=== PATIENT | male | born 1960 | race Caucasian/White ===

== ENCOUNTER 2021-05-21 13:24 | Inpatient (IN) | payer OTHER ==
[~2021-05-21] VITALS: Ht 175.3 cm; Wt 72.6 kg
--- NOTE | 2021-05-21 13:56 | PHYS DOC ---
Past Medical History Past Medical History: No Pertinent History Past Surgical History: No Surgical History Smoking Status: Never Smoker Alcohol Use: None Drug Use: None General Adult EDM: Chief Complaint: SHORTNESS OF BREATH Problems: (1) Shortness of breath HPI: HPI: 61-year-old male presents to the emergency department complaining of shortness of breath, mental fogginess, cough, fever, chills. He was seen by his primary care physician in [place] earlier today and was found to be hypoxic on room air 86%. He was also noted to have marked confusion, trouble with walking without assistance. He denies any focal weakness, numbness, but does report that he has been much more confused and mentally "foggy "over the past 10 days that has been progressing. He denies any acute change today with the symptoms today. He admits that he was infected with Covid approximately 3 weeks ago and has not had any resolution of symptoms. He admits to progressive cough, shortness of breath that is worsening. Review of Systems: Review of Systems: Constitutional: Admits to fever and chills. Eyes: Denies change in vision, pain. HENT: Admits to congestion and sore throat. Respiratory: Admits to cough and shortness of breath. Cardiovascular: Denies chest pain or edema. GI: Denies abdominal pain, nausea. : Denies change in urination, dysuria. Musculoskeletal: Denies extremity pain, swelling, or trauma. Skin: Denies rash, skin change. Neurologic: Admits to confusion, denies focal weakness or numbness. Psychiatric: Denies depression or anxiety. All other systems reviewed as negative except for what was mentioned in the HPI. Heart Score: C/O Chest Pain: No Family History: Family History: Noncontributory Current Medications: My Orders - DAVID CASIANO DO Procedure Category Date Status Time Vital Signs Monitoring ER 05/21/21 Transmitted 13:47 Blood Pressure ER 05/21/21 Transmitted Monitoring 13:47 Cbc W [employer]od[employer] LAB 05/21/21 In Process 13:47 Comprehensive LAB 05/21/21 Complete Metabolic Panel 13:47 Portable Chest 1v RAD 05/21/21 Resulted 13:47 12 Lead Ekg EKG 05/21/21 Complete 13:47 Nt-Pro Bnp LAB 05/21/21 Complete 13:47 Troponini LAB 05/21/21 Complete 13:47 Pulse Oximetry: [facility] 05/21/21 In Process Standing Order 13:47 Ct Head Wo Contrast CT 05/21/21 Resulted 13:47 Manual Differential LAB 05/21/21 In Process 14:00 Er Bridge Order ADT 05/21/21 Transmitted 14:38 Code Status CODE 05/21/21 Transmitted 14:38 Vital Signs, Per Unit [facility] 05/21/21 In Process Protocol 14:38 Regular DIET 05/21/21 Transmitted Dinner Ambulate With [facility] 05/21/21 In Process Assistance 14:38 Consult Physician By CONS 05/21/21 Transmitted Name 14:38 Foreign Banknote Teller [facility] 05/21/21 In Process 14:38 Vital Signs Q4h [facility] 05/21/21 In Process 14:38 Allergies: Allergies: Allergies Coded Allergies Type Severity Reaction Last Updated Verified No Known Drug Allergies 05/21/21 No Physical Exam: PE: Constitutional: No acute distress, non-toxic appearance. HENT: Atraumatic, bilateral external ears normal, nose normal. Eyes: PERRLA, EOMI, conjunctiva normal, no discharge. Neck: Normal range of motion, supple, no stridor. Cardiovascular: Heart rate regular rhythm. 2+ radial pulses Lungs & Thorax: No respiratory distress, symmetrical expansion. Bilateral breath sounds clear to auscultation Abdomen: Soft, no tenderness Skin: Warm, dry. Extremities: No tenderness, no cyanosis, ROM intact, no edema. Neurologic: Alert and oriented X 3, patient appears confused, laborious speech but clear and fluent, takes a long time to answer simple questions normal motor function, normal sensory function, no focal deficits noted. Patient appears off balance when he walks, cannot walk unassisted. GCS 15. Psychologic: Affect normal, judgment normal, mood normal. Current Patient Data: Labs: Laboratory Tests Test 05/21/21 14:00 White Blood Count 6.0 x10^3/uL (4.0-11.0) Red Blood Count 4.40 x10^6/uL (4.30-5.70) Hemoglobin 13.6 g/dL (13.0-17.5) Hematocrit 39.0 % (39.0-53.0) Mean Corpuscular Volume 89 fL (79-100) Mean Corpuscular Hemoglobin 31 pg (25-35) Mean Corpuscular Hemoglobin Concent 35 g/dL (31-37) Red Cell Distribution Width 13.9 % (11.5-14.5) Platelet Count 298 x10^3/uL (140-400) Neutrophils (%) (Auto) 87 % (31-73) Lymphocytes (%) (Auto) 8 % (24-48) Monocytes (%) (Auto) 5 % (0-9) Eosinophils (%) (Auto) 0 % (0-3) Basophils (%) (Auto) 0 % (0-3) Neutrophils # (Auto) 5.2 x10^3/uL (1.8-7.7) Lymphocytes # (Auto) 0.5 x10^3/uL (1.0-4.8) Monocytes # (Auto) 0.3 x10^3/uL (0.0-1.1) Eosinophils # (Auto) 0.0 x10^3/uL (0.0-0.7) Basophils # (Auto) 0.0 x10^3/uL (0.0-0.2) Sodium Level 124 mmol/L (136-145) Potassium Level 4.0 mmol/L (3.5-5.1) Chloride Level 88 mmol/L (98-107) Carbon Dioxide Level 28 mmol/L (21-32) Anion Gap 8 (6-14) Blood Urea Nitrogen 24 mg/dL (8-26) Creatinine 1.3 mg/dL (0.7-1.3) Estimated GFR (Cockcroft-Gault) 55.8 BUN/Creatinine Ratio 18 (6-20) Glucose Level 119 mg/dL (70-99) Calcium Level 8.5 mg/dL (8.5-10.1) Total Bilirubin 1.3 mg/dL (0.2-1.0) Aspartate Amino Transf (AST/SGOT) 63 U/L (15-37) Alanine Aminotransferase (ALT/SGPT) 154 U/L (16-63) Alkaline Phosphatase 158 U/L (46-116) Troponin I Quantitative < 0.017 ng/mL (0.000-0.055) ZV-Jkq-M-Type Natriuretic Peptide 240 pg/mL (0-124) Total Protein 6.6 g/dL (6.4-8.2) Albumin 2.4 g/dL (3.4-5.0) Albumin/Globulin Ratio 0.6 (1.0-1.7) Vital Signs: Vital Signs Date Time Temp Pulse Resp B/P (MAP) Pulse Ox O2 Delivery O2 Flow Rate FiO2 05/21/21 13:30 98.4 72 18 103/65 94 Nasal Cannula 4.0 98.4 EKG: EKG: Normal sinus rhythm rate of 68, no ST-T wave changes, no ectopic beats, left axis deviation, normal MD, QRS, and QTc intervals. Impression: Left axis deviation interpreted by meDavid D.O. Radiology/Procedures: Radiology/Procedures: CT HEAD/BRAIN WO History: Confusion. Comparison: None. Technique: Noncontrast CT imaging was performed of the head. Findings: No intracranial hemorrhage. No mass effect. No hydrocephalus. No evidence of territorial infarction. Imaged orbits are unremarkable. Imaged paranasal sinuses and mastoid air cells are clear. The scalp and calvarium are unremarkable. Impression: 1. No acute intracranial abnormality. ----- Exposure: One or more of the following individualized dose reduction techniques were utilized for this examination: 1. Automated exposure control 2. Adjustment of the mA and/or kV according to patient size 3. Use of iterative reconstruction technique. Electronically signed by: Torito Guy MD (05/21/2021 2:18 PM) XR CHEST 1V History: Short of air. Comparison: None. Technique: Portable AP radiograph of the chest. Findings: Diffuse bilateral airspace consolidations. No pleural effusion or pneumothorax. Adequate inflation. Cardiac mediastinal silhouette and pulmonary vasculature are within normal limits. Osseous structures and soft tissues are unremarkable. Impression: 1. Diffuse bilateral airspace consolidations, most likely multifocal pneumonia such as Covid viral pneumonia. Electronically signed by: Torito Guy MD (05/21/2021 2:19 PM) Course & Med Decision Making: Course & Med Decision Making Patient with COVID-19 pneumonia with diffuse opacities and infiltrates on his plain film of the chest. He also had marked confusion, states onset was about 10 days ago, while outside the window for TPA, does not have anything focal on his neuro exam today. Subacute/chronic CVA is certainly on the differential. Patient will require further work-up regarding this. He does have a new supplemental oxygen requirement of 4 L at this time as he was hypoxic on room air. He will be admitted to the hospital under Dr. Riffel Departure Departure Impression: Primary Impression: Pneumonia due to COVID-19 virus Additional Impression: Confusion with non-focal neuro exam Disposition: ADMITTED INPATIENT (Riffel) Condition: STABLE Referrals: BONNIE REDDY (PCP) DAVID CASIANO DO May 21, 2021 13:56
[2021-05-21 14:07] LABS: BASO % 0 % (0-3); EOS % 0 % (0-3); HEMOGLOBIN 13.6 g/dL (13.0-17.5); LYMPH # 0.5 x10^3/uL (1.0-4.8); LYMPH % 8 % (24-48); MEAN CORPUSCULAR HEMOGLOBIN 31 pg (25-35); MEAN CORPUSCULAR HGB CONC 35 g/dL (31-37); MEAN CORPUSCULAR VOLUME 89 fL (79-100); MONO # 0.3 x10^3/uL (0.0-1.1); MONO % 5 % (0-9); NEUT # 5.2 x10^3/uL (1.8-7.7); NEUT % 87 % (31-73); PLATELET COUNT 298 x10^3/uL (140-400); RED CELL DISTRIBUTION WIDTH 13.9 % (11.5-14.5)
[2021-05-21 14:15] LABS: CALCIUM 8.5 mg/dL (8.5-10.1); CREATININE 1.3 mg/dL (0.7-1.3); GFR 55.8
--- NOTE | 2021-05-21 14:18 | EKG ---
[facility] [address] [place] [address] Test Date: 2021-05-21 Test Time: 13:57:34 Pat Name: RENY CALLES Department: Room: Gender: M Polisher Dial: : 1960 Requested By: SHENA CASIANO Order Number: [id number] Reading MD: Measurements Intervals [place] Rate: 68 P: 61 CO: 144 QRS: -10 QRSD: 96 T: 30 QT: 410 QTc: 441 Interpretive Statements SINUS RHYTHM LEFTWARD AXIS OTHERWISE NORMAL ECG RI6.02 No previous ECG available for comparison
--- NOTE | 2021-05-21 14:20 | RAD ---
CT HEAD/BRAIN WO History: Confusion. Comparison: None. Technique: Noncontrast CT imaging was performed of the head. Findings: No intracranial hemorrhage. No mass effect. No hydrocephalus. No evidence of territorial infarction. Imaged orbits are unremarkable. Imaged paranasal sinuses and mastoid air cells are clear. The scalp a nd calvarium are unremarkable. Impression: 1. No acute intracranial abnormality. ----- Exposure: One or more of the following individualized dose reduction techniques were utilized for thi s examination: 1. Automated exposure control 2. Adjustment of the mA and/or kV according to patient size 3. Use of iterative reconstruction technique. Electronically signed by: Torito Guy MD (05/21/2021 2:18 PM) [id number]
[2021-05-21 14:21] LABS: ALBUMIN 2.4 g/dL (3.4-5.0); ALBUMIN/GLOBULIN RATIO 0.6 (1.0-1.7); TOTAL BILIRUBIN 1.3 mg/dL (0.2-1.0); TOTAL PROTEIN 6.6 g/dL (6.4-8.2)
--- NOTE | 2021-05-21 14:22 | RAD ---
XR CHEST 1V History: Short of air. Comparison: None. Technique: Portable AP radiograph of the chest. Findings: Diffuse bilateral airspace consolidations. No pleural effusion or pneumothorax. Adequate inflation. C ardiac mediastinal silhouette and pulmonary vasculature are within normal limits. Osseous structures and soft tissues are unremarkable. Impression: 1. Diffuse bilateral airspace consolidations, most likely multifocal pneumonia such as Covid viral p neumonia. Electronically signed by: Torito Guy MD (05/21/2021 2:19 PM) [id number]
--- NOTE | 2021-05-21 15:02 | PDOC1 ---
History and Physical Date of Admission Date of Admission DATE: 05/21/21 TIME: 15:01 Identification/Chief Complaint Chief Complaint Shortness of breath Source Source: Patient History of Present Illness History of Present Illness Mr Brown is a 61-year-old male (22 year retired [employer] ) who presents to the emergency department complaining of shortness of breath, mental fogginess, word finding difficulty, cough, fever, chills. His PCP in [place] earlier today and was found to be hypoxic on room air 86%. He was also noted to have marked confusion, trouble with walking without assistance, no focal deficits, just muscular fatigue. He has been more confused and had mental fogginess for the past 10 days. He believes was infected with Covid approximately 3 weeks ago and was tested positive at [facility] and has not had any resolution of symptoms. In fact he admits to progressive cough, shortness of breath that is worsening. He also notes anosmia loss of appetite. He has had trouble taking care of himself. In the ED he required 4 L nasal cannula oxygen to maintain O2 saturations 89% greater. On interview he was slow to find words but this improved as his oxygen saturations improved. He does note he wanted to get COVID-19 vaccine but was convinced to delay this as his did not think it was necessary. Labs with WBC 6, Hb 13.6, platelets 298, NA 124, K4, BUN 24, CR 1.3, glucose 119 calcium 8.5, bilirubin 1.3, AST 63, ALT 154, alkaline phosphatase 158, albumin 2.4, troponin 0, NT proBNP [address] head with no acute abnormalities Chest radiograph with diffuse bilateral airspace consolidations Admitted for further care. Past Medical History Cardiovascular: No pertinent hx Past Surgical History Past Surgical History: No pertinent history Family History Family History: Hypertension Social History Smoke: Quit (Continues to use smokeless tobacco) ALCOHOL: none Drugs: None Current Problem List Problem List Problems Medical Problems: (1) Confusion with non-focal neuro exam Status: Acute (2) Pneumonia due to COVID-19 virus Status: Acute Allergies Allergies: Coded Allergies: No Known Drug Allergies (Unverified , 05/21/21) ROS General: YES: Chills, Night Sweats, Fatigue, Malaise, Appetite; No: Other PSYCHOLOGICAL ROS: YES: Concentration difficultie, Memory difficulties; No: Anxiety, Behavioral Disorder, Decreased libido, Depression, Disorientation, Hallucinations, Hostility, Irritablity, Mood Swings, Obsessive thoughts, Physical abuse, Sexual abuse, Sleep disturbances, Suicidal ideation, Other Eyes: No Blurry vision, No Decreased vision, No Double vision, No Dry eyes, No Excessive tearing, No Eye Pain, No Itchy Eyes, No Loss of vision, No Phot ophobia, No Scotomata, No Uses contacts, No Uses glasses, No Other HEENT: YES: Nasal congestion, Nasal discharge, Sinus pain, Sneezing; No: Heacaches, Visual Changes, Hearing change, Oral lesions, Sore Throat, Epistaxis, Snoring, Tinnitus, Vertigo, Vocal changes, Other ALLERGY AND IMMUNOLOGY: No: Hives, Insect Bite Sensitivity, Itchy/Watery Eyes, Nasal Congestion, Post Nasal Drip, Seasonal Allergies, Other Hematological and Lymphatic: No: Bleeding Problems, Blood Clots, Blood Transfu sions, Brusing, Night Sweats, Pallor, Swollen Lymph Nodes, Other ENDOCRINE: No: Breast Changes, Galactorrhea, Hair Pattern Changes, Hot Flashes, Malaise/lethargy, Mood Swings, Palpitations, Polydipsia/polyuria, Skin Changes, Temperature Intolerance, Unexpected Weight Changes, Other Breast: No New/Changing Breast Lumps, No Nipple changes, No Nipple discharge, No Other Respiratory: YES: Cough, Shortness of breath, SOB with excertion, Tachypnea, Wheezing; No: Hemoptysis, Orthopnea, Pleuritic Pain, Sputum Changes, Stridor, Other Cardiovascular: No Chest Pain, No Palpitations, No Orthopnea, No Paroxysmal Noc. Dyspnea, No Edema, No Lt Headedness, No Other Gastrointestinal: Yes Nausea; No Vomiting, No Abdominal Pain, No Diarrhea, No Constipation, No Melena, No Hematochezia, No Other Genitourinary: No Dysuria, No Frequency, No Incontinence, No Hematuria, No Retention, No Discharge, No Urgency, No Pain, No Flank Pain, No Other, No , No , No , No , No , No , No Musculoskeletal: No Gait Disturbance, No Joint Pain, No Joint Stiffness, No Joint Swelling, No Muscle Pain, No Muscular Weakness, No Pain In:, No Swelling In:, No Other Neurological: No Behavorial Changes, No Bowel/Bladder ControlChng, No Confusion, No Dizziness, No Gait Disturbance, No Headaches, No Impaired Coord/balance, No Memory Loss, No Numbness/Tingling, No Seizures, No Speech Prob lems, No Tremors, No Visual Changes, No Weakness, No Other Skin: No Dry Skin, No Eczema, No Hair Changes, No Lumps, No Mole Changes, No Mottling, No Nail Changes, No Pruritus, No Rash, No Skin Lesion Changes, No Other, No Acne Physical Exam General: Alert, Oriented X3, Cooperative, moderate distress HEENT: Atraumatic, PERRLA, EOMI, Mucous membr. moist/pink Lungs: Other (Bilateral coarse rhonchi) Heart: S1S2, RRR, no thrills, no rubs, no gallops, no murmurs Abdomen: Normal bowel sounds, Soft, No tenderness, No hepatosplenomegaly, No masses Rectal Exam: not examined Extremities: No clubbing, No cyanosis, No edema, Normal pulses, No tenderness/swelling Skin: No rashes, No breakdown, No significant lesion Neuro: Normal gait, Normal speech, Strength at 5/5 X4 ext, Normal tone, Sensation intact, Cranial nerves 3-12 NL, Reflexes 2+ Psych/Mental Status: Mental status NL, Mood NL Vitals Vitals Vital Signs Date Time Temp Pulse Resp B/P (MAP) Pulse Ox O2 Delivery O2 Flow Rate FiO2 05/21/21 14:27 69 24 115/71 (86) 96 Nasal Cannula 3.0 05/21/21 13:30 98.4 98.4 Labs Labs Laboratory Tests Test 05/21/21 14:00 White Blood Count 6.0 x10^3/uL (4.0-11.0) Red Blood Count 4.40 x10^6/uL (4.30-5.70) Hemoglobin 13.6 g/dL (13.0-17.5) Hematocrit 39.0 % (39.0-53.0) Mean Corpuscular Volume 89 fL (79-100) Mean Corpuscular Hemoglobin 31 pg (25-35) Mean Corpuscular Hemoglobin Concent 35 g/dL (31-37) Red Cell Distribution Width 13.9 % (11.5-14.5) Platelet Count 298 x10^3/uL (140-400) Neutrophils (%) (Auto) 87 % (31-73) Lymphocytes (%) (Auto) 8 % (24-48) Monocytes (%) (Auto) 5 % (0-9) Eosinophils (%) (Auto) 0 % (0-3) Basophils (%) (Auto) 0 % (0-3) Neutrophils # (Auto) 5.2 x10^3/uL (1.8-7.7) Lymphocytes # (Auto) 0.5 x10^3/uL (1.0-4.8) Monocytes # (Auto) 0.3 x10^3/uL (0.0-1.1) Eosinophils # (Auto) 0.0 x10^3/uL (0.0-0.7) Basophils # (Auto) 0.0 x10^3/uL (0.0-0.2) Sodium Level 124 mmol/L (136-145) Potassium Level 4.0 mmol/L (3.5-5.1) Chloride Level 88 mmol/L (98-107) Carbon Dioxide Level 28 mmol/L (21-32) Anion Gap 8 (6-14) Blood Urea Nitrogen 24 mg/dL (8-26) Creatinine 1.3 mg/dL (0.7-1.3) Estimated GFR (Cockcroft-Gault) 55.8 BUN/Creatinine Ratio 18 (6-20) Glucose Level 119 mg/dL (70-99) Calcium Level 8.5 mg/dL (8.5-10.1) Total Bilirubin 1.3 mg/dL (0.2-1.0) Aspartate Amino Transf (AST/SGOT) 63 U/L (15-37) Alanine Aminotransferase (ALT/SGPT) 154 U/L (16-63) Alkaline Phosphatase 158 U/L (46-116) Troponin I Quantitative < 0.017 ng/mL (0.000-0.055) DG-Nqr-C-Type Natriuretic Peptide 240 pg/mL (0-124) Total Protein 6.6 g/dL (6.4-8.2) Albumin 2.4 g/dL (3.4-5.0) Albumin/Globulin Ratio 0.6 (1.0-1.7) Laboratory Tests Test 05/21/21 14:00 White Blood Count 6.0 x10^3/uL (4.0-11.0) Red Blood Count 4.40 x10^6/uL (4.30-5.70) Hemoglobin 13.6 g/dL (13.0-17.5) Hematocrit 39.0 % (39.0-53.0) Mean Corpuscular Volume 89 fL (79-100) Mean Corpuscular Hemoglobin 31 pg (25-35) Mean Corpuscular Hemoglobin Concent 35 g/dL (31-37) Red Cell Distribution Width 13.9 % (11.5-14.5) Platelet Count 298 x10^3/uL (140-400) Neutrophils (%) (Auto) 87 % (31-73) Lymphocytes (%) (Auto) 8 % (24-48) Monocytes (%) (Auto) 5 % (0-9) Eosinophils (%) (Auto) 0 % (0-3) Basophils (%) (Auto) 0 % (0-3) Neutrophils # (Auto) 5.2 x10^3/uL (1.8-7.7) Lymphocytes # (Auto) 0.5 x10^3/uL (1.0-4.8) Monocytes # (Auto) 0.3 x10^3/uL (0.0-1.1) Eosinophils # (Auto) 0.0 x10^3/uL (0.0-0.7) Basophils # (Auto) 0.0 x10^3/uL (0.0-0.2) Sodium Level 124 mmol/L (136-145) Potassium Level 4.0 mmol/L (3.5-5.1) Chloride Level 88 mmol/L (98-107) Carbon Dioxide Level 28 mmol/L (21-32) Anion Gap 8 (6-14) Blood Urea Nitrogen 24 mg/dL (8-26) Creatinine 1.3 mg/dL (0.7-1.3) Estimated GFR (Cockcroft-Gault) 55.8 BUN/Creatinine Ratio 18 (6-20) Glucose Level 119 mg/dL (70-99) Calcium Level 8.5 mg/dL (8.5-10.1) Total Bilirubin 1.3 mg/dL (0.2-1.0) Aspartate Amino Transf (AST/SGOT) 63 U/L (15-37) Alanine Aminotransferase (ALT/SGPT) 154 U/L (16-63) Alkaline Phosphatase 158 U/L (46-116) Troponin I Quantitative < 0.017 ng/mL (0.000-0.055) EI-Bso-M-Type Natriuretic Peptide 240 pg/mL (0-124) Total Protein 6.6 g/dL (6.4-8.2) Albumin 2.4 g/dL (3.4-5.0) Albumin/Globulin Ratio 0.6 (1.0-1.7) Images Images Chest radiograph: Diffuse bilateral airspace consolidations. No pleural effusion or pneumothorax. Adequate inflation. Cardiac mediastinal silhouette and pulmonary vasculature are within normal limits. Osseous structures and soft tissues are unremarkable. Impression: 1. Diffuse bilateral airspace consolidations, most likely multifocal pneumonia such as Covid viral pneumonia. Noncontrast CT head: No intracranial hemorrhage. No mass effect. No hydrocephalus. No evidence of territorial infarction. Imaged orbits are unremarkable. Imaged paranasal sinuses and mastoid air cells are clear. The scalp and calvarium are unremarkable. Impression: 1. No acute intracranial abnormality. VTE Prophylaxis Ordered VTE Prophylaxis Devices: No VTE Pharmacological Prophylaxi: Yes Assessment/Plan Assessment/Plan A/P: Acute respiratory failure with hypoxia -likely COVID-19 related ARDS complicated by an acquired pneumonia. Will initiate Decadron and remdesivir. COVID 19 - with ARDS/pneumonia. Above treatment and supportive care wean O2 as tolerated. Community acquired pneumonia - bilateral atypical appearance likely gram nega tive secondary bacterial pneumonia complicating COVID 19. Will cover empirically, f/u urine legionella Acute Encephalopathy - likely hypoxic encephalopathy or related to hyponatremia. No immediate concerns for CVA, this is better explained by metabolic phenomena Hyponatremia - likely nutritional, has been taking PO poorly. Will check urine legionella as well Transaminitis - likely COVID 19 related as well as nutritional. Will trend Severe protein calorie malnutrition - related to above. Will add supplements as needed DEDRICK - likely vasomotor nephropathy. No renal disease history Smokeless tobacco use - counseled on cessation. offered nicotine replacement therapy FEN - regular diet PPX lovenox FULL CODE Dispo - inpatient for above Justifications for Admission Other Justification HADLEY GATES MD May 21, 2021 15:02
[2021-05-21 15:21] LABS: % ATYL 1 % (0-0); % BANDS 5 % (0-9); % EOS 1 % (0-5); % LYMPHS 6 % (24-48); % SEGS 87 % (35-66); PLT ESTIMATE ADEQUATE (ADEQUATE)
[2021-05-21 15:38] LABS: TOXIC GRANULATION SLIGHT
[2021-05-21] MEDS ORDERED: ACETAMINOPHEN 325 MG TABLET. PO PRN (15:45)
[2021-05-21] MEDS ORDERED: ONDANSETRON PF 4 MG/2 ML VIAL. IVP PRN (15:45)
[2021-05-21] MEDS ORDERED: guaiFENesin DM 200MG/20MG 10 ML SYRUP PO PRN (15:45)
[2021-05-21] MEDS ORDERED: traMADol 50 MG TABLET PO PRN (15:45)
[2021-05-21] MEDS: cefTRIAXone IV Push 1 GM VIAL. IVP SCH (16:38)
[2021-05-21] MEDS: DEXAMETHASONE SOD PHOS 4 MG/ML VIAL IVP SCH (16:42)
[2021-05-21] MEDS ORDERED: IV NORMAL SALINE 1000ML BAG 1,000 ML IV ONE (17:00)
[2021-05-21 17:39] LABS: BASE EXCESS ABG 3 mmol/L (-3-3); HCO3 ABG 26 mmol/L (21-28); PCO2 ABG 32 mmHg (35-46); PO2 ABG 60 mmHg (65-108); SAT O2 ABG 92 % (92-99)
[2021-05-21 17:40] LABS: FIO2 ABG 36% 4L NC
[2021-05-21] MEDS ORDERED: REMDESIVIR LOAD in IV NORMAL SALINE 250ML TV IV ONE (18:00)
[2021-05-21 18:37] VITALS: BP 110/66
--- NOTE | 2021-05-21 18:38 | NUR ---
Pt arrived on unit at 1820 by bed via ED staff. POC/orders reviewed. Pt in bed on 5L NC, O2 sats 90%. Pt instructed to breath in through nose and out through mouth. Pt denies pain on admission, slow to respond. Fresh ice water given. Will assume care of pt.
[2021-05-21] MEDS ORDERED: ZOLPIDEM 5 MG TABLET. PO PRN (21:00)
[2021-05-21] MEDS: DOXYCYCLINE HYCLATE 100 MG in IV DEXTROSE 5% 100ML 100 ML IV SCH (21:25)
[2021-05-21] MEDS: PSYLLIUM HUSK (SUGAR FREE) 1 PKT PACKET PO SCH (21:26)
[2021-05-21] MEDS: ENOXAPARIN 40 MG/0.4 ML SYRINGE. SQ SCH (21:26)
[2021-05-21 23:00] VITALS: BP 101/63
[2021-05-22 03:00] VITALS: BP 120/73
[2021-05-22 04:32] LABS: BILIRUBIN,URINE NEGATIVE (NEG); CLARITY,URINE CLEAR; COLOR,URINE AMBER; NITRITE,URINE NEGATIVE (NEG); PH,URINE 5.5 (<5.0-8.0); PROTEIN,URINE 30 mg/dL (NEG-TRACE)
[2021-05-22 05:35] LABS: AMORPHOUS SEDIMENT,UR PRESENT /HPF; BACTERIA,URINE FEW /HPF (0-FEW)
[2021-05-22 07:00] VITALS: BP 93/66
[2021-05-22 07:22] LABS: BASO % 0 % (0-3); EOS % 0 % (0-3); HEMOGLOBIN 12.9 g/dL (13.0-17.5); LYMPH # 0.3 x10^3/uL (1.0-4.8); LYMPH % 8 % (24-48); MEAN CORPUSCULAR HEMOGLOBIN 31 pg (25-35); MEAN CORPUSCULAR HGB CONC 35 g/dL (31-37); MEAN CORPUSCULAR VOLUME 88 fL (79-100); MONO # 0.3 x10^3/uL (0.0-1.1); MONO % 7 % (0-9); NEUT # 3.5 x10^3/uL (1.8-7.7); NEUT % 85 % (31-73); PLATELET COUNT 308 x10^3/uL (140-400); RED BLOOD COUNT 4.18 x10^6/uL (4.30-5.70); RED CELL DISTRIBUTION WIDTH 13.9 % (11.5-14.5); WHITE BLOOD COUNT 4.1 x10^3/uL (4.0-11.0)
[2021-05-22 07:46] LABS: ALBUMIN/GLOBULIN RATIO 0.5 (1.0-1.7); CALCIUM 8.3 mg/dL (8.5-10.1); CREATININE 0.9 mg/dL (0.7-1.3); GFR 85.2; POTASSIUM 4.4 mmol/L (3.5-5.1); TOTAL BILIRUBIN 0.6 mg/dL (0.2-1.0)
[2021-05-22] MEDS: DEXAMETHASONE SOD PHOS 4 MG/ML VIAL IVP SCH (08:37)
[2021-05-22] MEDS: ZINC SULFATE 220 MG CAPSULE. PO SCH (08:38)
[2021-05-22] MEDS: THIAMINE 100 MG TABLET. PO SCH (08:38)
[2021-05-22] MEDS: DOXYCYCLINE HYCLATE 100 MG in IV DEXTROSE 5% 100ML 100 ML IV SCH ×2 (08:38→21:06)
--- NOTE | 2021-05-22 09:50 | PDOC2 ---
NEUROLOGY CONSULT Date of Service DOS: DATE: 05/22/21 TIME: 09:45 Reason for Consult Reason for Consult: Confusion, possible stroke Referring Physician Referring Physician: Dr. Garcia Source Source: Chart review, Patient History of Present Illness History of Present Illness The patient is a 61-year-old right-handed male who presented to the emergency department with dyspnea, mental fogginess, cough, fevers, and chills. He thinks he was infected with Covid 3 weeks ago by some coworkers. He is Covid positive. At his primary care physician yesterday, he was had 86% saturation on room air. He is feeling much better today. He denies any history of stroke, seizure, or head injury. He has also been found to have hyponatremia, slight hyperbilirubinemia, slightly elevated transaminases. Past Medical History Musculoskeletal: Other (Left tibia fracture) Past Surgical History Past Surgical History: No pertinent history Family History Family History: No pertinent hx (Mother at age 97) Social History Social History , occasional smokeless tobacco, rare alcohol, no street drugs, , still works as a associate financial representative Current Medications Current Medications Current Medications Dexamethasone Sodium Phosphate (Decadron) 6 mg DAILY IVP Last administered on 05/22/21at 08:37; Start 05/21/21 at 15:45 Acetaminophen (Tylenol) 650 mg PRN Q6HRS PRN PO MILD PAIN / TEMP > 100.3'F; Start 05/21/21 at 15:45 Ondansetron HCl (Zofran) 4 mg PRN Q4HRS PRN IVP NAUSEA/VOMITING; Start 05/21/21 at 15:45 Tramadol HCl (Ultram) 50 mg PRN Q6HRS PRN PO MODERATE-SEVERE PAIN; Start 05/21/21 at 15:45 Guaifenesin (Robitussin Dm) 10 ml PRN Q6HRS PRN PO COUGH; Start 05/21/21 at 15:4 5 Enoxaparin Sodium (Lovenox 40mg Syringe) 40 mg Q24H SQ Last administered on 05/21/21at 21:26; Start 05/21/21 at 21:00 Ceftriaxone Sodium (Rocephin) 1 gm Q24H IVP Last administered on 05/21/21at 16:38; Start 05/21/21 at 17:00 Doxycycline Hyclate 100 mg/ Dextrose 100 ml @ 50 mls/hr Q12HR IV Last administered on 05/22/21at 08:38; Start 05/21/21 at 21:00 Zinc Sulfate (Orazinc) 220 mg DAILY PO Last administered on 05/22/21at 08:38; Start 05/22/21 at 09:00 Zolpidem Tartrate (Ambien) 5 mg PRN QHS PRN PO INSOMNIA; Start 05/21/21 at 21:00 Psyllium Hydrophilic Mucilloid (Metamucil Fiber Packet) 1 pkt QHS PO Last administered on 05/21/21at 21:26; Start 05/21/21 at 21:00 Thiamine Mononitrate (Vitamin B-1) 100 mg DAILY PO Last administered on 05/22/21at 08:38; Start 05/22/21 at 09:00 Remdesivir 200 mg/ Sodium Chloride 210 ml @ 210 mls/hr 1X ONCE IV Last administered on 05/21/21at 18:26; Start 05/21/21 at 18:00; Stop 05/21/21 at 18:59; Status DC Remdesivir 100 mg/ Sodium Chloride 230 ml @ 460 mls/hr Q24H IV ; Start 05/22/21 at 18:00; Stop 05/25/21 at 18:29 Sodium Chloride 1,000 ml @ 75 mls/hr 1X ONCE IV Last administered on 05/21/21at 18:26; Start 05/21/21 at 17:00; Stop 05/22/21 at 06:19; Status DC Active Scripts Active Reported [none] Allergies Allergies: Coded Allergies: No Known Drug Allergies (Unverified , 05/21/21) ROS Review of System Negative for fever, chills, weight loss, shortness of breath, chest pain, indigestion, hematochezia, melena, and dysuria. Full 14-point review of systems is negative. Physical Exam Physical Examination General: Well-developed, well-nourished white male in no acute distress HEENT: Normocephalic andatraumatic. Tympanic membranes clear.Temporal arteriespulsatile and nontender.Fundoscopic exam unremarkable Neck: Supple without bruit, no meningismus Musculoskeletal: Stability:see neurologic. Gait exam:see neurologic. Tone:see neurologic.Strength:see neurologic. Neurological: Mental Status:intact, orientation, memory, attention span/concentration, language, fund of knowledge normal. Cranial Nerves:Pupils equal and reactive to light, extraocular movements areintact, visual corona are full to confrontati on. Facial sensation is normal. There is no facial asymmetry. Vestibulo-ocular reflex is intact. Palate elevates and tongue protrudes in midline. All other cranial related problems are negative except as mentioned before.Reflexes:2+ and symmetric with flexor plantar responses. Motor:5/5 strength with normal tone and bulk. Coordination:Finger-nose finger and ruca-uv-[id number] testing are normal. Rapid alternating movements and fine finger movements are intact. Gait:Normal, including tandem. Sensory:Normal pinprick, vibration, light touch, proprioception. Vitals VITALS Vital Signs Date Time Temp Pulse Resp B/P (MAP) Pulse Ox O2 Delivery O2 Flow Rate FiO2 05/22/21 08:00 Nasal Cannula 4.0 05/22/21 07:00 98.1 58 18 93/66 (75) 94 98.1 Labs Labs Laboratory Tests Test 05/21/21 14:00 05/21/21 17:20 05/22/21 02:52 05/22/21 06:00 White Blood Count 6.0 x10^3/uL (4.0-11.0) 4.1 x10^3/uL (4.0-11.0) Red Blood Count 4.40 x10^6/uL (4.30-5.70) 4.18 x10^6/uL (4.30-5.70) Hemoglobin 13.6 g/dL (13.0-17.5) 12.9 g/dL (13.0-17.5) Hematocrit 39.0 % (39.0-53.0) 37.0 % (39.0-53.0) Mean Corpuscular Volume 89 fL (79-100) 88 fL (79-100) Mean Corpuscular Hemoglobin 31 pg (25-35) 31 pg (25-35) Mean Corpuscular Hemoglobin Concent 35 g/dL (31-37) 35 g/dL (31-37) Red Cell Distribution Width 13.9 % (11.5-14.5) 13.9 % (11.5-14.5) Platelet Count 298 x10^3/uL (140-400) 308 x10^3/uL (140-400) Neutrophils (%) (Auto) 87 % (31-73) 85 % (31-73) Lymphocytes (%) (Auto) 8 % (24-48) 8 % (24-48) Monocytes (%) (Auto) 5 % (0-9) 7 % (0-9) Eosinophils (%) (Auto) 0 % (0-3) 0 % (0-3) Basophils (%) (Auto) 0 % (0-3) 0 % (0-3) Neutrophils # (Auto) 5.2 x10^3/uL (1.8-7.7) 3.5 x10^3/uL (1.8-7.7) Lymphocytes # (Auto) 0.5 x10^3/uL (1.0-4.8) 0.3 x10^3/uL (1.0-4.8) Monocytes # (Auto) 0.3 x10^3/uL (0.0-1.1) 0.3 x10^3/uL (0.0-1.1) Eosinophils # (Auto) 0.0 x10^3/uL (0.0-0.7) 0.0 x10^3/uL (0.0-0.7) Basophils # (Auto) 0.0 x10^3/uL (0.0-0.2) 0.0 x10^3/uL (0.0-0.2) Segmented Neutrophils % 87 % (35-66) Band Neutrophils % 5 % (0-9) Lymphocytes % 6 % (24-48) Atypical Lymphocytes % (Manual) 1 % (0-0) Eosinophils % 1 % (0-5) Toxic Granulation Slight Platelet Estimate Adequate (ADEQUATE) Sodium Level 124 mmol/L (136-145) 127 mmol/L (136-145) Potassium Level 4.0 mmol/L (3.5-5.1) 4.4 mmol/L (3.5-5.1) Chloride Level 88 mmol/L (98-107) 93 mmol/L (98-107) Carbon Dioxide Level 28 mmol/L (21-32) 27 mmol/L (21-32) Anion Gap 8 (6-14) 7 (6-14) Blood Urea Nitrogen 24 mg/dL (8-26) 20 mg/dL (8-26) Creatinine 1.3 mg/dL (0.7-1.3) 0.9 mg/dL (0.7-1.3) Estimated GFR (Cockcroft-Gault) 55.8 85.2 BUN/Creatinine Ratio 18 (6-20) 22 (6-20) Glucose Level 119 mg/dL (70-99) 137 mg/dL (70-99) Calcium Level 8.5 mg/dL (8.5-10.1) 8.3 mg/dL (8.5-10.1) Total Bilirubin 1.3 mg/dL (0.2-1.0) 0.6 mg/dL (0.2-1.0) Aspartate Amino Transf (AST/SGOT) 63 U/L (15-37) 54 U/L (15-37) Alanine Aminotransferase (ALT/SGPT) 154 U/L (16-63) 124 U/L (16-63) Alkaline Phosphatase 158 U/L (46-116) 130 U/L (46-116) Troponin I Quantitative < 0.017 ng/mL (0.000-0.055) DK-Rlp-B-Type Natriuretic Peptide 240 pg/mL (0-124) Total Protein 6.6 g/dL (6.4-8.2) 6.0 g/dL (6.4-8.2) Albumin 2.4 g/dL (3.4-5.0) 2.0 g/dL (3.4-5.0) Albumin/Globulin Ratio 0.6 (1.0-1.7) 0.5 (1.0-1.7) O2 Saturation 92 % (92-99) Arterial Blood pH 7.52 (7.35-7.45) Arterial Blood pCO2 at Patient Temp 32 mmHg (35-46) Arterial Blood pO2 at Patient Temp 60 mmHg (65-108) Arterial Blood HCO3 26 mmol/L (21-28) Arterial Blood Base Excess 3 mmol/L (-3-3) FiO2 36% 4l nc Urine Collection Type Unknown Urine Color Tracey Urine Clarity Clear Urine pH 5.5 (<5.0-8.0) Urine Specific [place] 1.020 (1.000-1.030) Urine Protein 30 mg/dL (NEG-TRACE) Urine Glucose (UA) Negative mg/dL (NEG) Urine Ketones (Stick) Negative mg/dL (NEG) Urine Blood Trace (NEG) Urine Nitrite Negative (NEG) Urine Bilirubin Negative (NEG) Urine Urobilinogen Dipstick 1.0 mg/dL (0.2 mg/dL) Urine Leukocyte Esterase Negative (NEG) Urine RBC 1-2 /HPF (0-2) Urine WBC 1-4 /HPF (0-4) Urine Squamous Epithelial Cells Few /LPF Urine Amorphous Sediment Present /HPF Urine Bacteria Few /HPF (0-FEW) Urine Mucus Mod /LPF Laboratory Tests Test 05/21/21 14:00 05/21/21 17:20 05/22/21 02:52 05/22/21 06:00 White Blood Count 6.0 x10^3/uL (4.0-11.0) 4.1 x10^3/uL (4.0-11.0) Red Blood Count 4.40 x10^6/uL (4.30-5.70) 4.18 x10^6/uL (4.30-5.70) Hemoglobin 13.6 g/dL (13.0-17.5) 12.9 g/dL (13.0-17.5) Hematocrit 39.0 % (39.0-53.0) 37.0 % (39.0-53.0) Mean Corpuscular Volume 89 fL (79-100) 88 fL (79-100) Mean Corpuscular Hemoglobin 31 pg (25-35) 31 pg (25-35) Mean Corpuscular Hemoglobin Concent 35 g/dL (31-37) 35 g/dL (31-37) Red Cell Distribution Width 13.9 % (11.5-14.5) 13.9 % (11.5-14.5) Platelet Count 298 x10^3/uL (140-400) 308 x10^3/uL (140-400) Neutrophils (%) (Auto) 87 % (31-73) 85 % (31-73) Lymphocytes (%) (Auto) 8 % (24-48) 8 % (24-48) Monocytes (%) (Auto) 5 % (0-9) 7 % (0-9) Eosinophils (%) (Auto) 0 % (0-3) 0 % (0-3) Basophils (%) (Auto) 0 % (0-3) 0 % (0-3) Neutrophils # (Auto) 5.2 x10^3/uL (1.8-7.7) 3.5 x10^3/uL (1.8-7.7) Lymphocytes # (Auto) 0.5 x10^3/uL (1.0-4.8) 0.3 x10^3/uL (1.0-4.8) Monocytes # (Auto) 0.3 x10^3/uL (0.0-1.1) 0.3 x10^3/uL (0.0-1.1) Eosinophils # (Auto) 0.0 x10^3/uL (0.0-0.7) 0.0 x10^3/uL (0.0-0.7) Basophils # (Auto) 0.0 x10^3/uL (0.0-0.2) 0.0 x10^3/uL (0.0-0.2) Segmented Neutrophils % 87 % (35-66) Band Neutrophils % 5 % (0-9) Lymphocytes % 6 % (24-48) Atypical Lymphocytes % (Manual) 1 % (0-0) Eosinophils % 1 % (0-5) Toxic Granulation Slight Platelet Estimate Adequate (ADEQUATE) Sodium Level 124 mmol/L (136-145) 127 mmol/L (136-145) Potassium Level 4.0 mmol/L (3.5-5.1) 4.4 mmol/L (3.5-5.1) Chloride Level 88 mmol/L (98-107) 93 mmol/L (98-107) Carbon Dioxide Level 28 mmol/L (21-32) 27 mmol/L (21-32) Anion Gap 8 (6-14) 7 (6-14) Blood Urea Nitrogen 24 mg/dL (8-26) 20 mg/dL (8-26) Creatinine 1.3 mg/dL (0.7-1.3) 0.9 mg/dL (0.7-1.3) Estimated GFR (Cockcroft-Gault) 55.8 85.2 BUN/Creatinine Ratio 18 (6-20) 22 (6-20) Glucose Level 119 mg/dL (70-99) 137 mg/dL (70-99) Calcium Level 8.5 mg/dL (8.5-10.1) 8.3 mg/dL (8.5-10.1) Total Bilirubin 1.3 mg/dL (0.2-1.0) 0.6 mg/dL (0.2-1.0) Aspartate Amino Transf (AST/SGOT) 63 U/L (15-37) 54 U/L (15-37) Alanine Aminotransferase (ALT/SGPT) 154 U/L (16-63) 124 U/L (16-63) Alkaline Phosphatase 158 U/L (46-116) 130 U/L (46-116) Troponin I Quantitative < 0.017 ng/mL (0.000-0.055) TK-Kol-S-Type Natriuretic Peptide 240 pg/mL (0-124) Total Protein 6.6 g/dL (6.4-8.2) 6.0 g/dL (6.4-8.2) Albumin 2.4 g/dL (3.4-5.0) 2.0 g/dL (3.4-5.0) Albumin/Globulin Ratio 0.6 (1.0-1.7) 0.5 (1.0-1.7) O2 Saturation 92 % (92-99) Arterial Blood pH 7.52 (7.35-7.45) Arterial Blood pCO2 at Patient Temp 32 mmHg (35-46) Arterial Blood pO2 at Patient Temp 60 mmHg (65-108) Arterial Blood HCO3 26 mmol/L (21-28) Arterial Blood Base Excess 3 mmol/L (-3-3) FiO2 36% 4l sc Urine Collection Type Unknown Urine Color Tracey Urine Clarity Clear Urine pH 5.5 (<5.0-8.0) Urine Specific [place] 1.020 (1.000-1.030) Urine Protein 30 mg/dL (NEG-TRACE) Urine Glucose (UA) Negative mg/dL (NEG) Urine Ketones (Stick) Negative mg/dL (NEG) Urine Blood Trace (NEG) Urine Nitrite Negative (NEG) Urine Bilirubin Negative (NEG) Urine Urobilinogen Dipstick 1.0 mg/dL (0.2 mg/dL) Urine Leukocyte Esterase Negative (NEG) Urine RBC 1-2 /HPF (0-2) Urine WBC 1-4 /HPF (0-4) Urine Squamous Epithelial Cells Few /LPF Urine Amorphous Sediment Present /HPF Urine Bacteria Few /HPF (0-FEW) Urine Mucus Mod /LPF Images Images CT HEAD/BRAIN WO History: Confusion. Comparison: None. Technique: Noncontrast CT imaging was performed of the head. Findings: No intracranial hemorrhage. No mass effect. No hydrocephalus. No evidence of territorial infarction. Imaged orbits are unremarkable. Imaged paranasal sinuses and mastoid air cells are clear. The scalp and calvarium are unremarkable. Impression: 1. No acute intracranial abnormality. Assessment/Plan Assessment/Plan Impression: He had metabolic encephalopathy related to the hyponatremia, hypoxia, also with elevated transaminases, all due to his Covid infection. There is certainly no sign of a stroke, seizure disorder, or intracranial infection. He is doing very well today and has a normal exam. Recommendations: No additional neurological studies needed Neurology signs off, please recall me if needed. Thank you for letting me help with the patient's care KETTY CAMERON MD May 22, 2021 09:50
--- NOTE | 2021-05-22 10:39 | NUR ---
SW following. Discussed with RN, pt from home with , 5L (does not use oxygen at home), regular diet. COVID-19 positive. Pt starting on Remdesivir. RN advised no SW needs at this time. SW will continue to follow.
[2021-05-22 10:51] VITALS: BP 109/71
--- NOTE | 2021-05-22 11:58 | PDOC ---
[employer] PROGRESS NOTE Date of Service DOS: DATE: 05/22/21 TIME: 11:53 Chief Complaint Chief Complaint Acute respiratory failure with hypoxia -likely COVID-19 related ARDS complicated by an acquired pneumonia. Will initiate Decadron and remdesivir. COVID 19 - with ARDS/pneumonia. Above treatment and supportive care wean O2 as tolerated. Community acquired pneumonia - bilateral atypical appearance likely gram negative secondary bacterial pneumonia complicating COVID 19. Will cover empirically, f/u urine legionella Acute Encephalopathy - likely hypoxic encephalopathy or related to hyponatremia. No immediate concerns for CVA, this is better explained by metabolic phenomena Hyponatremia - likely nutritional, has been taking PO poorly. Will check urine legionella as well Transaminitis - likely COVID 19 related as well as nutritional. Will trend Severe protein calorie malnutrition - related to above. Will add supplements as needed DEDRICK - likely vasomotor nephropathy. No renal disease history Smokeless tobacco use - counseled on cessation. offered nicotine replacement therapy FEN - regular diet PPX lovenox FULL CODE Dispo - inpatient for above History of Present Illness History of Present Illness Mr Brown is a 61-year-old male (24 year retired [employer] ) who presents to the emergency department complaining of shortness of breath, mental fogginess, word finding difficulty, cough, fever, chills. His PCP in [place] earlier today and was found to be hypoxic on room air 86%. He was also noted to have marked confusion, trouble with walking without assistance, no focal deficits, just muscular fatigue. He has been more confused and had mental fogginess for the past 10 days. He believes was infected with Covid approximately 3 weeks ago and was tested positive at [facility] and has not had any resolution of symptoms. In fact he admits to progressive cough, shortness of breath that i s worsening. He also notes anosmia loss of appetite. He has had trouble taking care of himself. In the ED he required 4 L nasal cannula oxygen to maintain O2 saturations 89% greater. On interview he was slow to find words but this improved as his oxygen saturations improved. He does note he wanted to get COVID-19 vaccine but was convinced to delay this as his did not think it was necessary. Labs with WBC 6, Hb 13.6, platelets 298, NA 124, K4, BUN 24, CR 1.3, glucose 119 calcium 8.5, bilirubin 1.3, AST 63, ALT 154, alkaline phosphatase 158, albumin 2.4, troponin 0, NT proBNP [address] head with no acute abnormalities Chest radiograph with diffuse bilateral airspace consolidations 05/22/2021: Patient afebrile, breathing 4 L nasal cannula. He was evaluated by neurology, and his confusion was deemed secondary to metabolic encephalopathy related to the hyponatremia, hypoxia, and his COVID-19 infection. No sign of a stroke, seizure disorder, or intracranial infection, per neurology. We will continue treatment with steroids, remdesivir, IV antibiotics, and supportive care. Vitals/I&O Vitals/I&O: Vital Signs Date Time Temp Pulse Resp B/P (MAP) Pulse Ox O2 Delivery O2 Flow Rate FiO2 05/22/21 10:51 98.0 66 18 109/71 (84) 92 Nasal Cannula 4.0 98.0 I & O 05/21/21 05/21/21 05/22/21 15:00 23:00 07:00 Intake Total 100 ml Balance 100 ml Physical Exam General: Alert, Oriented X3, Cooperative, mild distress Heart: Regular rate Lungs: Other (Coarse rhonchi bilaterally) Abdomen: Soft, No tenderness, No masses Extremities: No clubbing, No cyanosis, No edema Skin: No rashes, No breakdown Labs Labs: Laboratory Tests Test 05/21/21 14:00 05/21/21 17:20 05/22/21 02:52 05/22/21 06:00 White Blood Count 6.0 x10^3/uL (4.0-11.0) 4.1 x10^3/uL (4.0-11.0) Red Blood Count 4.40 x10^6/uL (4.30-5.70) 4.18 x10^6/uL (4.30-5.70) Hemoglobin 13.6 g/dL (13.0-17.5) 12.9 g/dL (13.0-17.5) Hematocrit 39.0 % (39.0-53.0) 37.0 % (39.0-53.0) Mean Corpuscular Volume 89 fL (79-100) 88 fL (79-100) Mean Corpuscular Hemoglobin 31 pg (25-35) 31 pg (25-35) Mean Corpuscular Hemoglobin Concent 35 g/dL (31-37) 35 g/dL (31-37) Red Cell Distribution Width 13.9 % (11.5-14.5) 13.9 % (11.5-14.5) Platelet Count 298 x10^3/uL (140-400) 308 x10^3/uL (140-400) Neutrophils (%) (Auto) 87 % (31-73) 85 % (31-73) Lymphocytes (%) (Auto) 8 % (24-48) 8 % (24-48) Monocytes (%) (Auto) 5 % (0-9) 7 % (0-9) Eosinophils (%) (Auto) 0 % (0-3) 0 % (0-3) Basophils (%) (Auto) 0 % (0-3) 0 % (0-3) Neutrophils # (Auto) 5.2 x10^3/uL (1.8-7.7) 3.5 x10^3/uL (1.8-7.7) Lymphocytes # (Auto) 0.5 x10^3/uL (1.0-4.8) 0.3 x10^3/uL (1.0-4.8) Monocytes # (Auto) 0.3 x10^3/uL (0.0-1.1) 0.3 x10^3/uL (0.0-1.1) Eosinophils # (Auto) 0.0 x10^3/uL (0.0-0.7) 0.0 x10^3/uL (0.0-0.7) Basophils # (Auto) 0.0 x10^3/uL (0.0-0.2) 0.0 x10^3/uL (0.0-0.2) Segmented Neutrophils % 87 % (35-66) Band Neutrophils % 5 % (0-9) Lymphocytes % 6 % (24-48) Atypical Lymphocytes % (Manual) 1 % (0-0) Eosinophils % 1 % (0-5) Toxic Granulation Slight Platelet Estimate Adequate (ADEQUATE) Sodium Level 124 mmol/L (136-145) 127 mmol/L (136-145) Potassium Level 4.0 mmol/L (3.5-5.1) 4.4 mmol/L (3.5-5.1) Chloride Level 88 mmol/L (98-107) 93 mmol/L (98-107) Carbon Dioxide Level 28 mmol/L (21-32) 27 mmol/L (21-32) Anion Gap 8 (6-14) 7 (6-14) Blood Urea Nitrogen 24 mg/dL (8-26) 20 mg/dL (8-26) Creatinine 1.3 mg/dL (0.7-1.3) 0.9 mg/dL (0.7-1.3) Estimated GFR (Cockcroft-Gault) 55.8 85.2 BUN/Creatinine Ratio 18 (6-20) 22 (6-20) Glucose Level 119 mg/dL (70-99) 137 mg/dL (70-99) Calcium Level 8.5 mg/dL (8.5-10.1) 8.3 mg/dL (8.5-10.1) Total Bilirubin 1.3 mg/dL (0.2-1.0) 0.6 mg/dL (0.2-1.0) Aspartate Amino Transf (AST/SGOT) 63 U/L (15-37) 54 U/L (15-37) Alanine Aminotransferase (ALT/SGPT) 154 U/L (16-63) 124 U/L (16-63) Alkaline Phosphatase 158 U/L (46-116) 130 U/L (46-116) Troponin I Quantitative < 0.017 ng/mL (0.000-0.055) SQ-Iep-O-Type Natriuretic Peptide 240 pg/mL (0-124) Total Protein 6.6 g/dL (6.4-8.2) 6.0 g/dL (6.4-8.2) Albumin 2.4 g/dL (3.4-5.0) 2.0 g/dL (3.4-5.0) Albumin/Globulin Ratio 0.6 (1.0-1.7) 0.5 (1.0-1.7) O2 Saturation 92 % (92-99) Arterial Blood pH 7.52 (7.35-7.45) Arterial Blood pCO2 at Patient Temp 32 mmHg (35-46) Arterial Blood pO2 at Patient Temp 60 mmHg (65-108) Arterial Blood HCO3 26 mmol/L (21-28) Arterial Blood Base Excess 3 mmol/L (-3-3) FiO2 36% 4l nc Urine Collection Type Unknown Urine Color Tracey Urine Clarity Clear Urine pH 5.5 (<5.0-8.0) Urine Specific [place] 1.020 (1.000-1.030) Urine Protein 30 mg/dL (NEG-TRACE) Urine Glucose (UA) Negative mg/dL (NEG) Urine Ketones (Stick) Negative mg/dL (NEG) Urine Blood Trace (NEG) Urine Nitrite Negative (NEG) Urine Bilirubin Negative (NEG) Urine Urobilinogen Dipstick 1.0 mg/dL (0.2 mg/dL) Urine Leukocyte Esterase Negative (NEG) Urine RBC 1-2 /HPF (0-2) Urine WBC 1-4 /HPF (0-4) Urine Squamous Epithelial Cells Few /LPF Urine Amorphous Sediment Present /HPF Urine Bacteria Few /HPF (0-FEW) Urine Mucus Mod /LPF Assessment and Plan Assessmemt and Plan Problems Medical Problems: (1) Confusion with non-focal neuro exam Status: Acute (2) Pneumonia due to COVID-19 virus Status: Acute Comment Review of Relevant I have reviewed the following items morales (where applicable) has been applied. Medications: Current Medications Medications (Trade) Dose Ordered Sig/Danilo Route PRN Reason Start Time Stop Time Status Last Admin Dose Admin Dexamethasone Sodium Phosphate (Decadron) 6 mg DAILY IVP 05/21/21 15:45 05/22/21 08:37 Enoxaparin Sodium (Lovenox 40mg Syringe) 40 mg Q24H SQ 05/21/21 21:00 05/21/21 21:26 Ceftriaxone Sodium (Rocephin) 1 gm Q24H IVP 05/21/21 17:00 05/21/21 16:38 Doxycycline Hyclate 100 mg/ Dextrose 100 ml @ 50 mls/hr Q12HR IV 05/21/21 21:00 05/22/21 08:38 Zinc Sulfate (Orazinc) 220 mg DAILY PO 05/22/21 09:00 05/22/21 08:38 Psyllium Hydrophilic Mucilloid (Metamucil Fiber Packet) 1 pkt QHS PO 05/21/21 21:00 05/21/21 21:26 Thiamine Mononitrate (Vitamin B-1) 100 mg DAILY PO 05/22/21 09:00 05/22/21 08:38 Remdesivir 200 mg/ Sodium Chloride 210 ml @ 210 mls/hr 1X ONCE IV 05/21/21 18:00 05/21/21 18:59 DC 05/21/21 18:26 Sodium Chloride 1,000 ml @ 75 mls/hr 1X ONCE IV 05/21/21 17:00 05/22/21 06:19 DC 05/21/21 18:26 Justifications for Admission Other Justification MORENO KUHN MD May 22, 2021 11:58
[2021-05-22 15:00] VITALS: BP 107/70
[2021-05-22] MEDS: REMDESIVIR 100mg in NORMAL SALINE 250ML X 4 DAYS IV SCH (16:06)
[2021-05-22] MEDS: cefTRIAXone IV Push 1 GM VIAL. IVP SCH (16:06)
[2021-05-22 19:00] VITALS: BP 101/69
[2021-05-22] MEDS: PSYLLIUM HUSK (SUGAR FREE) 1 PKT PACKET PO SCH ×2 (21:00→21:05)
[2021-05-22] MEDS: ENOXAPARIN 40 MG/0.4 ML SYRINGE. SQ SCH (21:05)
[2021-05-22] MEDS: LACTOBACILLUS RHAMNOSUS GG 1 CAPSULE. PO SCH (21:05)
[2021-05-22 23:00] VITALS: BP 117/72
[2021-05-23 03:00] VITALS: BP 93/64
[2021-05-23 07:00] VITALS: BP 106/65
[2021-05-23 07:39] LABS: BASO % 0 % (0-3); EOS % 0 % (0-3); HEMOGLOBIN 12.9 g/dL (13.0-17.5); LYMPH # 0.4 x10^3/uL (1.0-4.8); LYMPH % 5 % (24-48); MEAN CORPUSCULAR HEMOGLOBIN 30 pg (25-35); MEAN CORPUSCULAR HGB CONC 34 g/dL (31-37); MEAN CORPUSCULAR VOLUME 89 fL (79-100); MONO # 0.7 x10^3/uL (0.0-1.1); MONO % 8 % (0-9); NEUT # 7.3 x10^3/uL (1.8-7.7); NEUT % 87 % (31-73); PLATELET COUNT 494 x10^3/uL (140-400); RED BLOOD COUNT 4.26 x10^6/uL (4.30-5.70); RED CELL DISTRIBUTION WIDTH 14.2 % (11.5-14.5); WHITE BLOOD COUNT 8.4 x10^3/uL (4.0-11.0)
[2021-05-23 08:02] LABS: ALBUMIN/GLOBULIN RATIO 0.5 (1.0-1.7); CALCIUM 8.4 mg/dL (8.5-10.1); CREATININE 0.9 mg/dL (0.7-1.3); GFR 85.2; TOTAL BILIRUBIN 0.7 mg/dL (0.2-1.0); TOTAL PROTEIN 5.9 g/dL (6.4-8.2)
[2021-05-23 08:05] LABS: ALBUMIN 2.1 g/dL (3.4-5.0); DIRECT BILIRUBIN 0.3 mg/dL (0.0-0.2); TOTAL BILIRUBIN 0.6 mg/dL (0.2-1.0); TOTAL PROTEIN 5.3 g/dL (6.4-8.2)
[2021-05-23 11:00] VITALS: BP 116/69
[2021-05-23] MEDS: DEXAMETHASONE SOD PHOS 4 MG/ML VIAL IVP SCH (11:16)
[2021-05-23] MEDS: LACTOBACILLUS RHAMNOSUS GG 1 CAPSULE. PO SCH ×2 (11:16→20:31)
[2021-05-23] MEDS: ZINC SULFATE 220 MG CAPSULE. PO SCH (11:16)
[2021-05-23] MEDS: THIAMINE 100 MG TABLET. PO SCH (11:16)
[2021-05-23] MEDS: DOXYCYCLINE HYCLATE 100 MG in IV DEXTROSE 5% 100ML 100 ML IV SCH ×2 (11:16→20:33)
--- NOTE | 2021-05-23 11:48 | PDOC ---
[employer] PROGRESS NOTE Date of Service DOS: DATE: 05/23/21 TIME: 11:46 Chief Complaint Chief Complaint Acute respiratory failure with hypoxia -likely COVID-19 related ARDS complicated by an acquired pneumonia. Will initiate Decadron and remdesivir. COVID 19 - with ARDS/pneumonia. Above treatment and supportive care wean O2 as tolerated. Community acquired pneumonia - bilateral atypical appearance likely gram negative secondary bacterial pneumonia complicating COVID 19. Will cover empirically, f/u urine legionella Acute Encephalopathy - likely hypoxic encephalopathy or related to hyponatremia. No immediate concerns for CVA, this is better explained by metabolic phenomena Hyponatremia - likely nutritional, has been taking PO poorly. Will check urine legionella as well Transaminitis - likely COVID 19 related as well as nutritional. Will trend Severe protein calorie malnutrition - related to above. Will add supplements as needed DEDRICK - likely vasomotor nephropathy. No renal disease history Smokeless tobacco use - counseled on cessation. offered nicotine replacement therapy FEN - regular diet PPX lovenox FULL CODE Dispo - inpatient for above History of Present Illness History of Present Illness Mr Brown is a 61-year-old male (24 year retired [employer] ) who presents to the emergency department complaining of shortness of breath, mental fogginess, word finding difficulty, cough, fever, chills. His PCP in [place] earlier today and was found to be hypoxic on room air 86%. He was also noted to have marked confusion, trouble with walking without assistance, no focal deficits, just muscular fatigue. He has been more confused and had mental fogginess for the past 10 days. He believes was infected with Covid approximately 3 weeks ago and was tested positive at [facility] and has not had any resolution of symptoms. In fact he admits to progressive cough, shortness of breath that i s worsening. He also notes anosmia loss of appetite. He has had trouble taking care of himself. In the ED he required 4 L nasal cannula oxygen to maintain O2 saturations 89% greater. On interview he was slow to find words but this improved as his oxygen saturations improved. He does note he wanted to get COVID-19 vaccine but was convinced to delay this as his did not think it was necessary. Labs with WBC 6, Hb 13.6, platelets 298, NA 124, K4, BUN 24, CR 1.3, glucose 119 calcium 8.5, bilirubin 1.3, AST 63, ALT 154, alkaline phosphatase 158, albumin 2.4, troponin 0, NT proBNP [address] head with no acute abnormalities Chest radiograph with diffuse bilateral airspace consolidations 05/23/2021: Afebrile. Also complains of cough today. Continue treatment with remdesivir, steroids, and empiric antibiotics. Anticipate 6-minute walk in the next day or 2, and likely discharge on home oxygen. 05/22/2021: Patient afebrile, breathing 4 L nasal cannula. He was evaluated by neurology, and his confusion was deemed secondary to metabolic encephalopathy related to the hyponatremia, hypoxia, and his COVID-19 infection. No sign of a stroke, seizure disorder, or intracranial infection, per neurology. We will continue treatment with steroids, remdesivir, IV antibiotics, and supportive care. Vitals/I&O Vitals/I&O: Vital Signs Date Time Temp Pulse Resp B/P (MAP) Pulse Ox O2 Delivery O2 Flow Rate FiO2 05/23/21 07:00 97.8 55 18 106/65 (79) 98 Nasal Cannula 4.0 97.8 I & O 05/22/21 05/22/21 05/23/21 15:00 23:00 07:00 Intake Total 360 ml 480 ml 0 ml Balance 360 ml 480 ml 0 ml Physical Exam General: Alert, Oriented X3, Cooperative, No acute distress Heart: Regular rate Lungs: Other (Coarse rhonchi bilaterally) Abdomen: Soft, No tenderness, No masses Extremities: No clubbing, No cyanosis, No edema Skin: No rashes, No breakdown Labs Labs: Laboratory Tests Test 05/23/21 07:15 White Blood Count 8.4 x10^3/uL (4.0-11.0) Red Blood Count 4.26 x10^6/uL (4.30-5.70) Hemoglobin 12.9 g/dL (13.0-17.5) Hematocrit 38.0 % (39.0-53.0) Mean Corpuscular Volume 89 fL (79-100) Mean Corpuscular Hemoglobin 30 pg (25-35) Mean Corpuscular Hemoglobin Concent 34 g/dL (31-37) Red Cell Distribution Width 14.2 % (11.5-14.5) Platelet Count 494 x10^3/uL (140-400) Neutrophils (%) (Auto) 87 % (31-73) Lymphocytes (%) (Auto) 5 % (24-48) Monocytes (%) (Auto) 8 % (0-9) Eosinophils (%) (Auto) 0 % (0-3) Basophils (%) (Auto) 0 % (0-3) Neutrophils # (Auto) 7.3 x10^3/uL (1.8-7.7) Lymphocytes # (Auto) 0.4 x10^3/uL (1.0-4.8) Monocytes # (Auto) 0.7 x10^3/uL (0.0-1.1) Eosinophils # (Auto) 0.0 x10^3/uL (0.0-0.7) Basophils # (Auto) 0.0 x10^3/uL (0.0-0.2) Sodium Level 131 mmol/L (136-145) Potassium Level 4.0 mmol/L (3.5-5.1) Chloride Level 97 mmol/L (98-107) Carbon Dioxide Level 28 mmol/L (21-32) Anion Gap 6 (6-14) Blood Urea Nitrogen 18 mg/dL (8-26) Creatinine 0.9 mg/dL (0.7-1.3) Estimated GFR (Cockcroft-Gault) 85.2 BUN/Creatinine Ratio 20 (6-20) Glucose Level 126 mg/dL (70-99) Calcium Level 8.4 mg/dL (8.5-10.1) Total Bilirubin 0.6 mg/dL (0.2-1.0) Direct Bilirubin 0.3 mg/dL (0.0-0.2) Aspartate Amino Transf (AST/SGOT) 51 U/L (15-37) Alanine Aminotransferase (ALT/SGPT) 119 U/L (16-63) Alkaline Phosphatase 126 U/L (46-116) Total Protein 5.3 g/dL (6.4-8.2) Albumin 2.1 g/dL (3.4-5.0) Albumin/Globulin Ratio 0.5 (1.0-1.7) Assessment and Plan Assessmemt and Plan Problems Medical Problems: (1) Confusion with non-focal neuro exam Status: Acute (2) Pneumonia due to COVID-19 virus Status: Acute Comment Review of Relevant I have reviewed the following items morales (where applicable) has been applied. Medications: Current Medications Medications (Trade) Dose Ordered Sig/Danilo Route PRN Reason Start Time Stop Time Status Last Admin Dose Admin Remdesivir 100 mg/ Sodium Chloride 230 ml @ 460 mls/hr Q24H IV 05/22/21 18:00 05/25/21 18:29 05/22/21 16:06 Lactobacillus Rhamnosus (Culturelle) 1 cap BID PO 05/22/21 21:00 05/23/21 11:16 Justifications for Admission Other Justification MORENO KUHN MD May 23, 2021 11:48
[2021-05-23 14:57] VITALS: BP 114/56
[2021-05-23] MEDS: REMDESIVIR 100mg in NORMAL SALINE 250ML X 4 DAYS IV SCH (17:57)
[2021-05-23] MEDS: cefTRIAXone IV Push 1 GM VIAL. IVP SCH (17:57)
[2021-05-23 19:00] VITALS: BP 95/60
[2021-05-23] MEDS: ENOXAPARIN 40 MG/0.4 ML SYRINGE. SQ SCH (20:32)
[2021-05-23] MEDS: PSYLLIUM HUSK (SUGAR FREE) 1 PKT PACKET PO SCH (20:32)
[2021-05-23 23:00] VITALS: BP 95/62
[2021-05-24 03:00] VITALS: BP 93/56
[2021-05-24 05:19] LABS: BASO % 0 % (0-3); EOS % 0 % (0-3); HEMATOCRIT 35.1 % (39.0-53.0); HEMOGLOBIN 11.9 g/dL (13.0-17.5); LYMPH # 0.5 x10^3/uL (1.0-4.8); LYMPH % 6 % (24-48); MEAN CORPUSCULAR HEMOGLOBIN 31 pg (25-35); MEAN CORPUSCULAR HGB CONC 34 g/dL (31-37); MEAN CORPUSCULAR VOLUME 90 fL (79-100); MONO # 0.7 x10^3/uL (0.0-1.1); MONO % 9 % (0-9); NEUT # 6.4 x10^3/uL (1.8-7.7); NEUT % 85 % (31-73); PLATELET COUNT 511 x10^3/uL (140-400); RED BLOOD COUNT 3.91 x10^6/uL (4.30-5.70); RED CELL DISTRIBUTION WIDTH 13.8 % (11.5-14.5); WHITE BLOOD COUNT 7.5 x10^3/uL (4.0-11.0)
[2021-05-24 05:35] LABS: ALBUMIN 1.8 g/dL (3.4-5.0); ALBUMIN/GLOBULIN RATIO 0.5 (1.0-1.7); CALCIUM 7.9 mg/dL (8.5-10.1); CREATININE 0.9 mg/dL (0.7-1.3); GFR 85.2; POTASSIUM 4.4 mmol/L (3.5-5.1); TOTAL BILIRUBIN 0.6 mg/dL (0.2-1.0); TOTAL PROTEIN 5.4 g/dL (6.4-8.2)
[2021-05-24 05:46] LABS: ALBUMIN 1.9 g/dL (3.4-5.0); DIRECT BILIRUBIN 0.2 mg/dL (0.0-0.2); TOTAL BILIRUBIN 0.5 mg/dL (0.2-1.0)
[2021-05-24 07:00] VITALS: BP 103/64
[2021-05-24] MEDS: DOXYCYCLINE HYCLATE 100 MG in IV DEXTROSE 5% 100ML 100 ML IV SCH ×2 (10:11→20:32)
[2021-05-24] MEDS: THIAMINE 100 MG TABLET. PO SCH (10:12)
[2021-05-24] MEDS: DEXAMETHASONE SOD PHOS 4 MG/ML VIAL IVP SCH (10:12)
[2021-05-24] MEDS: LACTOBACILLUS RHAMNOSUS GG 1 CAPSULE. PO SCH ×2 (10:12→20:31)
[2021-05-24] MEDS: ZINC SULFATE 220 MG CAPSULE. PO SCH (10:12)
[2021-05-24 11:00] VITALS: BP 101/67
--- NOTE | 2021-05-24 11:19 | PDOC ---
[employer] PROGRESS NOTE Date of Service DOS: DATE: 05/24/21 TIME: 11:18 Chief Complaint Chief Complaint Acute respiratory failure with hypoxia -likely COVID-19 related ARDS complicated by an acquired pneumonia. Will initiate Decadron and remdesivir. COVID 19 - with ARDS/pneumonia. Above treatment and supportive care wean O2 as tolerated. Community acquired pneumonia - bilateral atypical appearance likely gram negative secondary bacterial pneumonia complicating COVID 19. Will cover empirically, f/u urine legionella Acute Encephalopathy - likely hypoxic encephalopathy or related to hyponatremia. No immediate concerns for CVA, this is better explained by metabolic phenomena Hyponatremia - likely nutritional, has been taking PO poorly. Will check urine legionella as well Transaminitis - likely COVID 19 related as well as nutritional. Will trend Severe protein calorie malnutrition - related to above. Will add supplements as needed DEDRICK - likely vasomotor nephropathy. No renal disease history Smokeless tobacco use - counseled on cessation. offered nicotine replacement therapy FEN - regular diet PPX lovenox FULL CODE Dispo - inpatient for above History of Present Illness History of Present Illness Mr Brown is a 61-year-old male (24 year retired [employer] ) who presents to the emergency department complaining of shortness of breath, mental fogginess, word finding difficulty, cough, fever, chills. His PCP in [place] earlier today and was found to be hypoxic on room air 86%. He was also noted to have marked confusion, trouble with walking without assistance, no focal deficits, just muscular fatigue. He has been more confused and had mental fogginess for the past 10 days. He believes was infected with Covid approximately 3 weeks ago and was tested positive at [facility] and has not had any resolution of symptoms. In fact he admits to progressive cough, shortness of breath that i s worsening. He also notes anosmia loss of appetite. He has had trouble taking care of himself. In the ED he required 4 L nasal cannula oxygen to maintain O2 saturations 89% greater. On interview he was slow to find words but this improved as his oxygen saturations improved. He does note he wanted to get COVID-19 vaccine but was convinced to delay this as his did not think it was necessary. Labs with WBC 6, Hb 13.6, platelets 298, NA 124, K4, BUN 24, CR 1.3, glucose 119 calcium 8.5, bilirubin 1.3, AST 63, ALT 154, alkaline phosphatase 158, albumin 2.4, troponin 0, NT proBNP [address] head with no acute abnormalities Chest radiograph with diffuse bilateral airspace consolidations 05/24/2021: Afebrile, currently breathing 5 L nasal cannula. Last day remdesivir is tomorrow (05/25), and after last dose will obtain 6-minute walk. Continue steroids and empiric antibiotics. Anticipate discharge tomorrow or the next day. 05/23/2021: Afebrile. Also complains of cough today. Continue treatment with rem desivir, steroids, and empiric antibiotics. Anticipate 6-minute walk in the next day or 2, and likely discharge on home oxygen. 05/22/2021: Patient afebrile, breathing 4 L nasal cannula. He was evaluated by neurology, and his confusion was deemed secondary to metabolic encephalopathy related to the hyponatremia, hypoxia, and his COVID-19 infection. No sign of a stroke, seizure disorder, or intracranial infection, per neurology. We will continue treatment with steroids, remdesivir, IV antibiotics, and supportive care. Vitals/I&O Vitals/I&O: Vital Signs Date Time Temp Pulse Resp B/P (MAP) Pulse Ox O2 Delivery O2 Flow Rate FiO2 05/24/21 07:00 97.3 60 18 103/64 (77) 92 Nasal Cannula 5.0 97.3 I & O 05/23/21 05/23/21 05/24/21 15:00 23:00 07:00 Intake Total 300 ml 230 ml Output Total 0 ml Balance 300 ml 230 ml 0 ml Physical Exam General: Alert, Oriented X3, Cooperative, No acute distress Heart: Regular rate Lungs: Other (Coarse rhonchi bilaterally) Abdomen: Soft, No tenderness, No masses Extremities: No clubbing, No cyanosis, No edema Skin: No rashes, No breakdown Labs Labs: Laboratory Tests Test 05/24/21 04:00 White Blood Count 7.5 x10^3/uL (4.0-11.0) Red Blood Count 3.91 x10^6/uL (4.30-5.70) Hemoglobin 11.9 g/dL (13.0-17.5) Hematocrit 35.1 % (39.0-53.0) Mean Corpuscular Volume 90 fL (79-100) Mean Corpuscular Hemoglobin 31 pg (25-35) Mean Corpuscular Hemoglobin Concent 34 g/dL (31-37) Red Cell Distribution Width 13.8 % (11.5-14.5) Platelet Count 511 x10^3/uL (140-400) Neutrophils (%) (Auto) 85 % (31-73) Lymphocytes (%) (Auto) 6 % (24-48) Monocytes (%) (Auto) 9 % (0-9) Eosinophils (%) (Auto) 0 % (0-3) Basophils (%) (Auto) 0 % (0-3) Neutrophils # (Auto) 6.4 x10^3/uL (1.8-7.7) Lymphocytes # (Auto) 0.5 x10^3/uL (1.0-4.8) Monocytes # (Auto) 0.7 x10^3/uL (0.0-1.1) Eosinophils # (Auto) 0.0 x10^3/uL (0.0-0.7) Basophils # (Auto) 0.0 x10^3/uL (0.0-0.2) Sodium Level 135 mmol/L (136-145) Potassium Level 4.4 mmol/L (3.5-5.1) Chloride Level 99 mmol/L (98-107) Carbon Dioxide Level 27 mmol/L (21-32) Anion Gap 9 (6-14) Blood Urea Nitrogen 22 mg/dL (8-26) Creatinine 0.9 mg/dL (0.7-1.3) Estimated GFR (Cockcroft-Gault) 85.2 BUN/Creatinine Ratio 24 (6-20) Glucose Level 108 mg/dL (70-99) Calcium Level 7.9 mg/dL (8.5-10.1) Total Bilirubin 0.5 mg/dL (0.2-1.0) Direct Bilirubin 0.2 mg/dL (0.0-0.2) Aspartate Amino Transf (AST/SGOT) 69 U/L (15-37) Alanine Aminotransferase (ALT/SGPT) 124 U/L (16-63) Alkaline Phosphatase 120 U/L (46-116) Total Protein 5.0 g/dL (6.4-8.2) Albumin 1.9 g/dL (3.4-5.0) Albumin/Globulin Ratio 0.5 (1.0-1.7) Assessment and Plan Assessmemt and Plan Problems Medical Problems: (1) Confusion with non-focal neuro exam Status: Acute (2) Pneumonia due to COVID-19 virus Status: Acute Comment Review of Relevant I have reviewed the following items morales (where applicable) has been applied. Justifications for Admission Other Justification MORENO KUHN MD May 24, 2021 11:19
--- NOTE | 2021-05-24 12:06 | NUR ---
SW following. Discussed with RN, pt from home with , 5L (does not use oxygen at home) COVID-19 postive. Pt not ready to discharge home, will need a 6 minute walk prior to discharge. SW will continue to follow.
[2021-05-24 15:00] VITALS: BP 103/62
[2021-05-24] MEDS: REMDESIVIR 100mg in NORMAL SALINE 250ML X 4 DAYS IV SCH (18:11)
[2021-05-24] MEDS: cefTRIAXone IV Push 1 GM VIAL. IVP SCH (18:12)
[2021-05-24 19:00] VITALS: BP 102/67
[2021-05-24] MEDS: ENOXAPARIN 40 MG/0.4 ML SYRINGE. SQ SCH (20:31)
[2021-05-24] MEDS: PSYLLIUM HUSK (SUGAR FREE) 1 PKT PACKET PO SCH (20:32)
[2021-05-24 23:00] VITALS: BP 137/94
[2021-05-25] VITALS (7 sets, daily range): BP systolic 83–104; BP diastolic 47–71
[2021-05-25] MEDS: DOXYCYCLINE HYCLATE 100 MG in IV DEXTROSE 5% 100ML 100 ML IV SCH ×2 (08:12→20:41)
[2021-05-25] MEDS: DEXAMETHASONE SOD PHOS 4 MG/ML VIAL IVP SCH (08:13)
[2021-05-25] MEDS: ZINC SULFATE 220 MG CAPSULE. PO SCH (08:13)
[2021-05-25] MEDS: LACTOBACILLUS RHAMNOSUS GG 1 CAPSULE. PO SCH ×2 (08:13→20:41)
[2021-05-25] MEDS: THIAMINE 100 MG TABLET. PO SCH (08:13)
[2021-05-25 08:15] LABS: BASO % 0 % (0-3); EOS % 0 % (0-3); HEMATOCRIT 36.6 % (39.0-53.0); HEMOGLOBIN 12.3 g/dL (13.0-17.5); LYMPH # 0.8 x10^3/uL (1.0-4.8); LYMPH % 10 % (24-48); MEAN CORPUSCULAR HEMOGLOBIN 31 pg (25-35); MEAN CORPUSCULAR HGB CONC 34 g/dL (31-37); MEAN CORPUSCULAR VOLUME 90 fL (79-100); MONO # 0.9 x10^3/uL (0.0-1.1); MONO % 10 % (0-9); NEUT # 6.5 x10^3/uL (1.8-7.7); NEUT % 79 % (31-73); PLATELET COUNT 506 x10^3/uL (140-400); RED BLOOD COUNT 4.05 x10^6/uL (4.30-5.70); RED CELL DISTRIBUTION WIDTH 14.3 % (11.5-14.5); WHITE BLOOD COUNT 8.2 x10^3/uL (4.0-11.0)
[2021-05-25 08:42] LABS: ALBUMIN 1.9 g/dL (3.4-5.0); ALBUMIN/GLOBULIN RATIO 0.5 (1.0-1.7); CALCIUM 7.9 mg/dL (8.5-10.1); CREATININE 0.9 mg/dL (0.7-1.3); GFR 85.2; POTASSIUM 4.5 mmol/L (3.5-5.1); TOTAL BILIRUBIN 0.6 mg/dL (0.2-1.0); TOTAL PROTEIN 5.5 g/dL (6.4-8.2)
[2021-05-25 08:57] LABS: DIRECT BILIRUBIN 0.2 mg/dL (0.0-0.2); TOTAL BILIRUBIN 0.6 mg/dL (0.2-1.0); TOTAL PROTEIN 4.9 g/dL (6.4-8.2)
[2021-05-25] MEDS ORDERED: IV NORMAL SALINE 1000ML BAG 1,000 ML IV ONE (09:30)
--- NOTE | 2021-05-25 12:24 | PDOC ---
[employer] PROGRESS NOTE Date of Service DOS: DATE: 05/25/21 TIME: 12:23 Chief Complaint Chief Complaint Acute respiratory failure with hypoxia -likely COVID-19 related ARDS complicated by an acquired pneumonia. Will initiate Decadron and remdesivir. COVID 19 - with ARDS/pneumonia. Above treatment and supportive care wean O2 as tolerated. Community acquired pneumonia - bilateral atypical appearance likely gram negative secondary bacterial pneumonia complicating COVID 19. Will cover empirically, f/u urine legionella Acute Encephalopathy - likely hypoxic encephalopathy or related to hyponatremia. No immediate concerns for CVA, this is better explained by metabolic phenomena Hyponatremia - likely nutritional, has been taking PO poorly. Will check urine legionella as well Transaminitis - likely COVID 19 related as well as nutritional. Will trend Severe protein calorie malnutrition - related to above. Will add supplements as needed DEDRICK - likely vasomotor nephropathy. No renal disease history Smokeless tobacco use - counseled on cessation. offered nicotine replacement therapy FEN - regular diet PPX lovenox FULL CODE Dispo - inpatient for above History of Present Illness History of Present Illness Mr Brown is a 61-year-old male (24 year retired [employer] ) who presents to the emergency department complaining of shortness of breath, mental fogginess, word finding difficulty, cough, fever, chills. His PCP in [place] earlier today and was found to be hypoxic on room air 86%. He was also noted to have marked confusion, trouble with walking without assistance, no focal deficits, just muscular fatigue. He has been more confused and had mental fogginess for the past 10 days. He believes was infected with Covid approximately 3 weeks ago and was tested positive at [facility] and has not had any resolution of symptoms. In fact he admits to progressive cough, shortness of breath that i s worsening. He also notes anosmia loss of appetite. He has had trouble taking care of himself. In the ED he required 4 L nasal cannula oxygen to maintain O2 saturations 89% greater. On interview he was slow to find words but this improved as his oxygen saturations improved. He does note he wanted to get COVID-19 vaccine but was convinced to delay this as his did not think it was necessary. Labs with WBC 6, Hb 13.6, platelets 298, NA 124, K4, BUN 24, CR 1.3, glucose 119 calcium 8.5, bilirubin 1.3, AST 63, ALT 154, alkaline phosphatase 158, albumin 2.4, troponin 0, NT proBNP [address] head with no acute abnormalities Chest radiograph with diffuse bilateral airspace consolidations 05/25/2021: States he feels well today. Denies chest pain, back pain, or fever. Finished remdesivir today. Plan to do 6-minute walk tomorrow and discharge home with or without home oxygen. 05/24/2021: Afebrile, currently breathing 5 L nasal cannula. Last day remdesivir is tomorrow (05/25), and after last dose will obtain 6-minute walk. Continue steroids and empiric antibiotics. Anticipate discharge tomorrow or the next day. 05/23/2021: Afebrile. Also complains of cough today. Continue treatment with remdesivir, steroids, and empiric antibiotics. Anticipate 6-minute walk in the next day or 2, and likely discharge on home oxygen. 05/22/2021: Patient afebrile, breathing 4 L nasal cannula. He was evaluated by neurology, and his confusion was deemed secondary to metabolic encephalopathy related to the hyponatremia, hypoxia, and his COVID-19 infection. No sign of a stroke, seizure disorder, or intracranial infection, per neurology. We will continue treatment with steroids, remdesivir, IV antibiotics, and supportive care. Vitals/I&O Vitals/I&O: Vital Signs Date Time Temp Pulse Resp B/P (MAP) Pulse Ox O2 Delivery O2 Flow Rate FiO2 05/25/21 08:10 80 17 97/64 (75) 92 Nasal Cannula 2.0 05/25/21 07:00 97.9 97.9 I & O 05/24/21 05/24/21 05/25/21 15:00 23:00 07:00 Intake Total 400 ml 614 ml Output Total 0 ml Balance 400 ml 614 ml 0 ml Physical Exam General: Alert, Oriented X3, Cooperative, No acute distress Heart: Regular rate Lungs: Other (Coarse rhonchi bilaterally) Abdomen: Soft, No tenderness, No masses Extremities: No clubbing, No cyanosis, No edema Skin: No rashes, No breakdown Labs Labs: Laboratory Tests Test 05/25/21 06:15 White Blood Count 8.2 x10^3/uL (4.0-11.0) Red Blood Count 4.05 x10^6/uL (4.30-5.70) Hemoglobin 12.3 g/dL (13.0-17.5) Hematocrit 36.6 % (39.0-53.0) Mean Corpuscular Volume 90 fL (79-100) Mean Corpuscular Hemoglobin 31 pg (25-35) Mean Corpuscular Hemoglobin Concent 34 g/dL (31-37) Red Cell Distribution Width 14.3 % (11.5-14.5) Platelet Count 506 x10^3/uL (140-400) Neutrophils (%) (Auto) 79 % (31-73) Lymphocytes (%) (Auto) 10 % (24-48) Monocytes (%) (Auto) 10 % (0-9) Eosinophils (%) (Auto) 0 % (0-3) Basophils (%) (Auto) 0 % (0-3) Neutrophils # (Auto) 6.5 x10^3/uL (1.8-7.7) Lymphocytes # (Auto) 0.8 x10^3/uL (1.0-4.8) Monocytes # (Auto) 0.9 x10^3/uL (0.0-1.1) Eosinophils # (Auto) 0.0 x10^3/uL (0.0-0.7) Basophils # (Auto) 0.0 x10^3/uL (0.0-0.2) Sodium Level 135 mmol/L (136-145) Potassium Level 4.5 mmol/L (3.5-5.1) Chloride Level 101 mmol/L (98-107) Carbon Dioxide Level 28 mmol/L (21-32) Anion Gap 6 (6-14) Blood Urea Nitrogen 20 mg/dL (8-26) Creatinine 0.9 mg/dL (0.7-1.3) Estimated GFR (Cockcroft-Gault) 85.2 BUN/Creatinine Ratio 22 (6-20) Glucose Level 85 mg/dL (70-99) Calcium Level 7.9 mg/dL (8.5-10.1) Total Bilirubin 0.6 mg/dL (0.2-1.0) Direct Bilirubin 0.2 mg/dL (0.0-0.2) Aspartate Amino Transf (AST/SGOT) 199 U/L (15-37) Alanine Aminotransferase (ALT/SGPT) 277 U/L (16-63) Alkaline Phosphatase 138 U/L (46-116) Total Protein 4.9 g/dL (6.4-8.2) Albumin 2.0 g/dL (3.4-5.0) Albumin/Globulin Ratio 0.5 (1.0-1.7) Assessment and Plan Assessmemt and Plan Problems Medical Problems: (1) Confusion with non-focal neuro exam Status: Acute (2) Pneumonia due to COVID-19 virus Status: Acute Comment Review of Relevant I have reviewed the following items morales (where applicable) has been applied. Justifications for Admission Other Justification MORENO KUHN MD May 25, 2021 12:24
[2021-05-25] MEDS: cefTRIAXone IV Push 1 GM VIAL. IVP SCH (18:04)
[2021-05-25] MEDS: REMDESIVIR 100mg in NORMAL SALINE 250ML X 4 DAYS IV SCH (18:04)
[2021-05-25] MEDS: PSYLLIUM HUSK (SUGAR FREE) 1 PKT PACKET PO SCH (20:40)
[2021-05-25] MEDS: ENOXAPARIN 40 MG/0.4 ML SYRINGE. SQ SCH (20:42)
[2021-05-26 03:00] VITALS: BP 87/58
[2021-05-26 07:00] VITALS: BP 90/55
[2021-05-26] MEDS: ZINC SULFATE 220 MG CAPSULE. PO SCH (08:38)
[2021-05-26] MEDS: THIAMINE 100 MG TABLET. PO SCH (08:38)
[2021-05-26] MEDS: DEXAMETHASONE SOD PHOS 4 MG/ML VIAL IVP SCH (08:38)
[2021-05-26] MEDS: LACTOBACILLUS RHAMNOSUS GG 1 CAPSULE. PO SCH (08:38)
[2021-05-26] MEDS: DOXYCYCLINE HYCLATE 100 MG in IV DEXTROSE 5% 100ML 100 ML IV SCH (08:38)
--- NOTE | 2021-05-26 09:23 | PDOC ---
[employer] PROGRESS NOTE Date of Service DOS: DATE: 05/26/21 TIME: 09:21 Chief Complaint Chief Complaint Acute respiratory failure with hypoxia -likely COVID-19 related ARDS complicated by an acquired pneumonia. Will initiate Decadron and remdesivir. COVID 19 - with ARDS/pneumonia. Above treatment and supportive care wean O2 as tolerated. Community acquired pneumonia - bilateral atypical appearance likely gram negative secondary bacterial pneumonia complicating COVID 19. Will cover empirically, f/u urine legionella Acute Encephalopathy - likely hypoxic encephalopathy or related to hyponatremia. No immediate concerns for CVA, this is better explained by metabolic phenomena Hyponatremia - likely nutritional, has been taking PO poorly. Will check urine legionella as well Transaminitis - likely COVID 19 related as well as nutritional. Will trend Severe protein calorie malnutrition - related to above. Will add supplements as needed DEDRICK - likely vasomotor nephropathy. No renal disease history Smokeless tobacco use - counseled on cessation. offered nicotine replacement therapy FEN - regular diet PPX lovenox FULL CODE Dispo - inpatient for above History of Present Illness History of Present Illness Mr Brown is a 61-year-old male (24 year retired [employer] ) who presents to the emergency department complaining of shortness of breath, mental fogginess, word finding difficulty, cough, fever, chills. His PCP in [place] earlier today and was found to be hypoxic on room air 86%. He was also noted to have marked confusion, trouble with walking without assistance, no focal deficits, just muscular fatigue. He has been more confused and had mental fogginess for the past 10 days. He believes was infected with Covid approximately 3 weeks ago and was tested positive at [facility] and has not had any resolution of symptoms. In fact he admits to progressive cough, shortness of breath that i s worsening. He also notes anosmia loss of appetite. He has had trouble taking care of himself. In the ED he required 4 L nasal cannula oxygen to maintain O2 saturations 89% greater. On interview he was slow to find words but this improved as his oxygen saturations improved. He does note he wanted to get COVID-19 vaccine but was convinced to delay this as his did not think it was necessary. Labs with WBC 6, Hb 13.6, platelets 298, NA 124, K4, BUN 24, CR 1.3, glucose 119 calcium 8.5, bilirubin 1.3, AST 63, ALT 154, alkaline phosphatase 158, albumin 2.4, troponin 0, NT proBNP [address] head with no acute abnormalities Chest radiograph with diffuse bilateral airspace consolidations 05/26/2021: Afebrile, breathing comfortably on room air. He finished his last course of remdesivir yesterday, states he feels ready to go home. Will discharge patient home and recommend self quarantine for duration of 10 days. Greater than 30 minutes was spent managing the discharge of this patient. 05/25/2021: States he feels well today. Denies chest pain, back pain, or fever. Finished remdesivir today. Plan to do 6-minute walk tomorrow and discharge home with or without home oxygen. 05/24/2021: Afebrile, currently breathing 5 L nasal cannula. Last day remdesivir is tomorrow (05/25), and after last dose will obtain 6-minute walk. Continue steroids and empiric antibiotics. Anticipate discharge tomorrow or the next day. 05/23/2021: Afebrile. Also complains of cough today. Continue treatment with remdesivir, steroids, and empiric antibiotics. Anticipate 6-minute walk in the next day or 2, and likely discharge on home oxygen. 05/22/2021: Patient afebrile, breathing 4 L nasal cannula. He was evaluated by neurology, and his confusion was deemed secondary to metabolic encephalopathy related to the hyponatremia, hypoxia, and his COVID-19 infection. No sign of a stroke, seizure disorder, or intracranial infection, per neurology. We will continue treatment with steroids, remdesivir, IV antibiotics, and supportive care. Vitals/I&O Vitals/I&O: Vital Signs Date Time Temp Pulse Resp B/P (MAP) Pulse Ox O2 Delivery O2 Flow Rate FiO2 05/26/21 03:00 96.9 65 18 87/58 (68) 93 Nasal Cannula 2.0 96.9 I & O 05/25/21 05/25/21 05/26/21 15:00 23:00 07:00 Intake Total 360 ml 0 ml Balance 360 ml 0 ml Physical Exam General: Alert, Oriented X3, Cooperative, No acute distress Heart: Regular rate Lungs: Clear Abdomen: Soft, No tenderness, No masses Extremities: No clubbing, No cyanosis, No edema Skin: No rashes, No breakdown Assessment and Plan Assessmemt and Plan Problems Medical Problems: (1) Confusion with non-focal neuro exam Status: Acute (2) Pneumonia due to COVID-19 virus Status: Acute Comment Review of Relevant I have reviewed the following items morales (where applicable) has been applied. Medications: Current Medications Medications (Trade) Dose Ordered Sig/Danilo Route PRN Reason Start Time Stop Time Status Last Admin Dose Admin Sodium Chloride 1,000 ml @ 75 mls/hr 1X ONCE IV 05/25/21 09:30 05/25/21 22:49 DC 05/25/21 12:28 Justifications for Admission Other Justification MORENO KUHN MD May 26, 2021 09:23
--- NOTE | 2021-05-26 09:24 | PDOC3 ---
Discharge Summary Visit Information Date of Admission: May 21, 2021 Date of Discharge: May 26, 2021 Final Diagnosis Problems Medical Problems: (1) Confusion with non-focal neuro exam Status: Acute (2) Pneumonia due to COVID-19 virus Status: Acute Brief Hospital Course Allergies Allergies Coded Allergies Type Severity Reaction Last Updated Verified No Known Drug Allergies 05/21/21 No Vital Signs Vital Signs Date Time Temp Pulse Resp B/P (MAP) Pulse Ox O2 Delivery O2 Flow Rate FiO2 05/26/21 03:00 96.9 65 18 87/58 (68) 93 Nasal Cannula 2.0 96.9 Lab Results Laboratory Tests Test 05/25/21 06:15 White Blood Count 8.2 x10^3/uL (4.0-11.0) Red Blood Count 4.05 x10^6/uL (4.30-5.70) Hemoglobin 12.3 g/dL (13.0-17.5) Hematocrit 36.6 % (39.0-53.0) Mean Corpuscular Volume 90 fL (79-100) Mean Corpuscular Hemoglobin 31 pg (25-35) Mean Corpuscular Hemoglobin Concent 34 g/dL (31-37) Red Cell Distribution Width 14.3 % (11.5-14.5) Platelet Count 506 x10^3/uL (140-400) Neutrophils (%) (Auto) 79 % (31-73) Lymphocytes (%) (Auto) 10 % (24-48) Monocytes (%) (Auto) 10 % (0-9) Eosinophils (%) (Auto) 0 % (0-3) Basophils (%) (Auto) 0 % (0-3) Neutrophils # (Auto) 6.5 x10^3/uL (1.8-7.7) Lymphocytes # (Auto) 0.8 x10^3/uL (1.0-4.8) Monocytes # (Auto) 0.9 x10^3/uL (0.0-1.1) Eosinophils # (Auto) 0.0 x10^3/uL (0.0-0.7) Basophils # (Auto) 0.0 x10^3/uL (0.0-0.2) Sodium Level 135 mmol/L (136-145) Potassium Level 4.5 mmol/L (3.5-5.1) Chloride Level 101 mmol/L (98-107) Carbon Dioxide Level 28 mmol/L (21-32) Anion Gap 6 (6-14) Blood Urea Nitrogen 20 mg/dL (8-26) Creatinine 0.9 mg/dL (0.7-1.3) Estimated GFR (Cockcroft-Gault) 85.2 BUN/Creatinine Ratio 22 (6-20) Glucose Level 85 mg/dL (70-99) Calcium Level 7.9 mg/dL (8.5-10.1) Total Bilirubin 0.6 mg/dL (0.2-1.0) Direct Bilirubin 0.2 mg/dL (0.0-0.2) Aspartate Amino Transf (AST/SGOT) 199 U/L (15-37) Alanine Aminotransferase (ALT/SGPT) 277 U/L (16-63) Alkaline Phosphatase 138 U/L (46-116) Total Protein 4.9 g/dL (6.4-8.2) Albumin 2.0 g/dL (3.4-5.0) Albumin/Globulin Ratio 0.5 (1.0-1.7) Brief Hospital Course Mr. Brown is a 61 old male who presented with acute respiratory failure with hypoxia, COVID-19 pneumonia. He was treated with remdesivir, steroids, prophylactic antibiotics, and supportive oxygen. His O2 requirement was gradually weaned down, and on the day of discharge he was breathing comfortably on room air. He was discharged home and recommended to self quarantine for duration of at least 10 days. Discharge Information Condition at Discharge: Improved Disposition/Orders: D/C to Home Miscellaneous Medications [none] , (Reported) Entered as Reported by: CARMEN ALEGRIA on 05/22/21455 Last Action: New Order on 05/22/21455 by CARMEN ALEGRIA Justicifation of Admission Dx: Justifications for Admission: Justification of Admission Dx: Yes MORENO KUHN MD May 26, 2021 09:24
--- NOTE | 2021-05-26 12:14 | NUR ---
Nurse's note: The patient was uncooperative today. At 0930, he told this nurse that he would leave [facility]. I discussed with him that he'll have a 6 minute walk to check his oxygen need. And he might go home by lunch time so we can set up his oxygen. He replied that he'll go now. Alex was frustrated since somebody told him that he would be sent home last Thursday. He said that he will not wait for another hour. This nurse paged the respiratory therapist and the 6 minute walk was done immediately. Their recommendation was to have him on 2 liters of oxygen per nasal cannula with activity and room air at rest. After the procedure, the patient walked to the elevator. This nurse instructed him to wait since we have to set up his oxygen before going home. Nursing printing and stamping supervisor was notified. However, the patient did not comply and went straight to the hallway. This nurse accompanied him to the ER entrance, then spoke to his that he has to be on oxygen. The patient's verbalized understanding. While at the ER driveway, the patient spit on the ground.
--- NOTE | 2021-05-26 14:47 | NUR ---
Discharge Note: CALE CALLES Discharge instructions reviewed with patient and a copy given.The patient was not receptive to teaching. The following instructions and handouts were given: Pneumonia handout. COVID precautions. Home oxygen at 2 LPM with activity, room air at rest. Follow up with PCP in weeks. Discontinued lines and drains: peripheral IV pulled out by patient, catheter intact, no bleeding on site noted. Patient discharged to home with self care, ambulatory accompanid by at 1030.
== END 2021-05-26 10:30 | disposition home or self-care (01) | DRG 177 ==
LOC: ER 13:24 → 5 NORTH 14:35
PROVIDERS: ADMIT Internal Medicine; ATTEND Internal Medicine
PROC: XW033E5 Introduction of Remdesivir Anti-infective into Peripheral Vein, Percutaneous Approach, New Technology Group 5 (ICD-10-PCS; principal; 2021-05-22)
DX: U07.1 COVID-19 (principal); J12.82 Pneumonia due to coronavirus disease 2019; J96.01 Acute respiratory failure with hypoxia; E43 Unspecified severe protein-calorie malnutrition; G93.41 Metabolic encephalopathy; E87.1 Hypo-osmolality and hyponatremia; G93.1 Anoxic brain damage, not elsewhere classified; N17.9 Acute kidney failure, unspecified; Z72.0 Tobacco use; Z82.49 Family history of ischemic heart disease and other diseases of the circulatory system; Z71.6 Tobacco abuse counseling; Z68.23 Body mass index [BMI] 23.0-23.9, adult
CPT/HCPCS: 36415; 36600; 70450; 71045; 80053; 80076; 81001; 82805; 83880; 84484; 85007; 85025; 87040; 87449; 93005; 94618; 96374; 96375; J0696; J1100; J1650; J3490; J7030; J7050; J7060; 99285-25; G0378